=== PATIENT | female | born 1955 | race Caucasian/White ===

== ENCOUNTER 2024-08-11 01:31 | Inpatient (IN) | payer OTHER, SELFPAY ==
[2024-08-10 22:33] VITALS: BP 120/74
--- NOTE | 2024-08-10 22:45 | ED.GENMED ---
History of Present Illness
General
Chief Complaint: Breathing Problem
Time Seen by Provider: 08/10/24 22:39
History of Present Illness
History of Present Illness:
69-year-old female with history of severe Parkinson's presents to the emergency department for evaluation of increased drooling, and lethargy as well as a low-grade fever. Per she has had increasing saliva over the past 2 days and this
morning had a temp of 101 Fahrenheit. She is entirely tube feed dependent but does take occasional sips of water orally, does note that she seems to have some struggling of breathing after drinking. No vomiting or diarrhea
Past History
Past History
ED Past Medical History: Hypothyroidism and Other (Parkinson's)
ED Past Surgical History: Gynecological (Tubal ligation)
Social History
Tobacco: Non-smoker
Alcohol: None
Drug: None
Personal:
Living: with family
Employment: Not employed
Review of Systems
Review of Systems
Allergies reviewed?: Yes
All Other Systems: ROS reviewed and negative except as documented in HPI and ROS
Phy Exam
Physical Exam
Physical Exam:
GEN: Chronically ill-appearing, diffusely contracted
HEENT: Oral mucosa moist, no scleral icterus, oral secretions noted
Cardiac: Regular rate and rhythm, no murmurs
Lung: Tachypneic with poor inspiratory effort, grossly diminished left lung sounds
MSK: No gross deformity or injuries
Skin: Good color, no pallor or jaundice, no rashes
Neuro: Alert, oriented to baseline, extremity contractures/rigidity noted
Psych: Calm, cooperative
Scores
Heart Failure Risk
Heart Failure Risk Score: Not Applicable
Course
Orders/Labs/Results
Orders:
Orders
08/10/24 22:45
Urinalysis Reflex To Culture Urgent
Date Specimen was Collected: 08/11/24
Time Specimen was Collected: 00:43
CR Chest Portable - 1 View Urgent
Comment:
Reason For Exam: hypoxia
Reason Study Needs to be Portable: Other
08/10/24 22:47
COVID-19 Antigen Urgent
Source: Nasal Swab
Complete Blood Count/With Diff Urgent
Comprehensive Metabolic Panel Urgent
Lactic Acid Q4H
Comment: CANCEL 2nd LACTIC ACID IF 1st LACTIC ACID IS LESS THAN 2
Manual Differential Urgent
Procalcitonin Urgent
PCT Algorithmm Indication: Respiratory
Prothrombin Time Urgent
Influenza A+B Rapid Molecular Urgent
MORIAH Source: Nasal Swab
Specimen Description:
08/10/24 23:16
0.9% Sodium Chloride 1000 ml [Nss] 1,000 ml IV BOLUS
08/10/24 23:36
Piperacillin/Tazo 3.375 Gram [Zosyn] 3.375 gram in 50 ml IV NOW
08/11/24 00:23
Straight cath- Treatment ONCE
08/11/24 00:51
0.9% Sodium Chloride 250 ml [Nss] 250 ml IV BOLUS
08/11/24 00:57
Vancomycin 1 Gram/200 ml [Vancocin] 1 gram in 200 ml IV NOW
08/11/24 01:00
Admit/Transfer Patient As Directed
Co-Sign Provider:
Level of Care: Inpatient admission
Assign to:: IMU- Intermediate Care
Physician / Group: hospitalist
Diagnosis: sepsis, respiratory distress
Reason for Hospitalization: sepsis, respiratory distress
Expected length of stay greater than two midnights?: Yes
ELOS- Estimated Length of Stay in days: 2
I certify the patient meets the requirements for IP care: Yes
Flush (0.9% Sodium Chloride) [Flush (Nss)] See Dose Instructions IV PER PROTOCOL
PRN Pain Medication Management As Directed
May give lesser potent ordered pain med per pt: Yes
preference::
Protocol:: Medication orders for pain may be administered in a
manner that supports deferring to patient preference
when the pt is:
- Requesting an ordered lesser potent pain medication.
Least to most potent pain medications are defined
as: acetaminophen < NSAID < tramadol < opioids
(morphine, oxycodone, hydromorphone).
- Requesting a lesser dose of the same medication IF
ORDERED.
- Requesting a less intrusive route of administration
if both routes are prescribed by the provider (PO <
IV).
08/11/24 01:01
Code Status As Directed
Resuscitation Status: Do not resuscitate
Reached after discussion with pt or family/Healthcare POA: Yes
DNR Bracelet Application ONCE
08/11/24 01:[address] [CT Chest Pe Study] Stat
Comment:
Reason For Exam: hypoxia, non-amblatory
08/11/24 02:45
Lactic Acid Q4H
Comment: CANCEL 2nd LACTIC ACID IF 1st LACTIC ACID IS LESS THAN 2
08/11/24 06:00
Levothyroxine [Synthroid] 75 mcg TUBE DAILY @ 0600
08/11/24 08:00
Carbidopa/Levodopa [Sinemet 25-100] 2 tablet TUBE TID
Glycopyrrolate [Robinul] 1 mg PO DAILY
Lansoprazole [Prevacid] 30 mg TUBE DAILY
08/11/24 22:00
Zolpidem Tartrate [Ambien] 10 mg TUBE HS
Abnormal Lab Results
08/10/24 08/11/24
22:47 00:45
RBC 4.04 L 10^6/uL
(4.20-5.40)
MCH 33.2 H pg
(27.0-31.0)
Segmented Neutrophils 29 L %
(42-75)
Band Neutrophils 41 H %
(0-3)
Lymphocytes (Manual) 8 L %
(20-51)
Monocytes (Manual) 18 H %
(2-9)
BUN 30 H mg/dl
(7-17)
Glucose 117 H mg/dl
(70-99)
Lactic Acid 3.2 H mmol/L
(0.7-2.0)
AST 90 H U/L
(14-36)
Alkaline Phosphatase 200 H U/L
(38-126)
Procalcitonin 4.38 H* ng/ml
(0.0-0.25)
Urine Ketones Trace A
(Negative)
08/10/24 22:47
08/10/24 22:47
Vital Signs
Initial and Last Documented VS:
Initial Vital Signs
Pulse Resp BP Pulse Ox
92 28 120/74 90
08/10/24 22:33 08/10/24 22:33 08/10/24 22:33 08/10/24 22:33
Last Documented Vital Signs
Temp Pulse Resp BP Pulse Ox
98.4 F 85 36 115/69 95
08/10/24 22:53 08/11/24 00:20 08/11/24 00:20 08/11/24 00:20 08/11/24 00:20
MDM/Problems Addressed
MDM/Problems Addressed:
69-year-old female presents with hypoxia and fever at home, she required gradual up titration of supplemental oxygen to 7 L of mid flow, exam concerning for lack of breath sounds on the left however x-ray shows no obvious abnormalities, due to
marked bandemia and elevated procalcitonin we will treat this as a presumed bacterial pneumonia, given her functional limitation will treat with IV Zosyn and admit for further management
*Critical Care Note
Total Time (30-74mins, 75-104mins- exclusive of procedures): Not Applicable
ED Attending Note
-
Portions of this chart may have been created with voice recognition software.� Occasional wrong word or��sound alike� substitutions may have occurred due to the inherent limitations of voice recognition software.
Discharge Plan
Departure
Patient Disposition: Admit
Date of Disposition: 08/11/24
Time of Disposition: 00:03
Presentation/result/management discussed w/ accepting MD/DO: Hospitalist
Discharge Problem:
Acute hypoxic respiratory failure, Pneumonia
Interventions
Interventions:
*Risk Screen - Suicide Last Done: 08/10/24 22:33
*General Assessment Last Done: 08/10/24 23:07
*Neglect/Abuse Screening Last Done: 08/10/24 22:33
ED- Fall Risk Assessment Last Done: 08/10/24 23:07
*ED COVID-19 Vaccine History Last Done: 08/10/24 23:07
ED- Cardiac Assessment Last Done: 08/10/24 23:07
ED- Pulmonary Assessment Last Done: 08/10/24 23:07
[2024-08-10 22:51] VITALS: BP 106/52
[2024-08-10 23:00] VITALS: BP 105/52
[2024-08-10 23:02] LABS: Hematocrit 38.9 % (37.0-47.0); Hemoglobin 13.4 g/dL (12.0-16.0); Mean Corp Hgb Conc. 34.4 g/dL (33.0-37.0); Mean Corpuscular Hgb 33.2 pg (27.0-31.0); Mean Corpuscular Volume 96.3 fL (81.0-99.0); Mean Platelet Volume 10.4 fL (7.4-10.4); Platelet Count 165 10^3/uL (130-400); Red Blood Cell Count 4.04 10^6/uL (4.20-5.40); Red Cell Dist. Width 12.5 % (11.5-14.5); White Blood Cell Count 4.9 10^3/uL (4.8-10.8)
[2024-08-10 23:06] VITALS: BP 115/67
[2024-08-10 23:08] LABS: INR 1.11; Lactic Acid 3.2 mmol/L (0.7-2.0); PT 14.2 Sec (11.4-14.6)
[2024-08-10 23:16] LABS: COVID-19 Antigen Negative (Negative)
[2024-08-10 23:20] VITALS: BP 119/67
[2024-08-10 23:22] LABS: ALT (SGPT) 18 U/L (0-35); AST (SGOT) 90 U/L (14-36); Albumin 4.2 g/dl (3.5-5.0); Alkaline Phosphatase 200 U/L (38-126); Blood Urea Nitrogen 30 mg/dl (7-17); Carbon Dioxide 27 mmol/L (22-30); Chloride 99 mmol/L (98-107); Glucose 117 mg/dl (70-99); Potassium 3.8 mmol/L (3.5-5.1); Sodium 139 mmol/L (135-145); Total Bilirubin 0.8 mg/dl (0.2-1.3); Total Protein 6.6 g/dl (6.3-8.2); eGFR > 60.00
[2024-08-10 23:23] LABS: Absolute Neutrophils -Man Diff 3.4 10^3/uL (1.4-6.5); Band Neutrophils 41 % (0-3); Lymphocytes 8 % (20-51); Metamyelocytes 4 % (-); Monocytes 18 % (2-9); Platelets Checked Yes; Segmented Neutrophils 29 % (42-75); Total Cells Counted 100; Toxic Granulation 1+; Vacuolated Segs 1+
[2024-08-10 23:24] LABS: Normal RBC Morphology Yes
[2024-08-10] MEDS: NSS 1000 IV (23:24)
[2024-08-10 23:40] VITALS: BP 121/68
[2024-08-10 23:52] LABS: Procalcitonin 4.38 ng/ml (0.0-0.25)
[2024-08-10] MEDS: ZOSYN 50 IV (23:58)
[2024-08-11] VITALS (54 sets, daily range): BP systolic 102–147; BP diastolic 61–83; BMI 19.5
[2024-08-11] MEDS: FLUSH (NSS) 1 FLUSH IV (00:43)
--- NOTE | 2024-08-11 00:44 | HPS.HSE ---
Family Physician
-
Family Physician: Lalitha Choudhary
Chief Complaint
-
Fever and shortness of breath
History of Present Illness
This is a 69-year-old female with past medical history significant for Parkinson's disease, PEG tube dependent but takes seen hydration orally presenting to the emergency department with fever and congestion at home.
According to spouse who provided history the patient started having symptoms yesterday. He found her to be drooling this morning. She sounded congested in the midsternal region. He also measured a temperature of over 100 �F at home. He reported
that he was able to extract greenish-yellow mucus from the oral cavity. Patient is unable to cough up any secretions. He reports that she does appear to cough with intake of oral hydration. She has no foul-smelling urine. She has no known sick
contacts. She has no abdominal pain. There has been no vomiting.
In the Emergency Department patient was afebrile with a temp of 98.5, blood pressure of 115/69 pulse of 85 but she was in respiratory distress with a respiratory of 36 and oxygen saturation of 85% on room air. She is currently satting at 95% on mid
flow. COVID test and influenza were negative. White count with notable for a WBC of 4.9 with 41% bands. Hemoglobin was 13 and platelet count was normal. Chemistries are within normal limits. Lactic acid was elevated at 3.2. Procalcitonin was
elevated at 4.3. UA is pending.
Medical History
Past Medical History
Past Medical History: Reports Hypothyroidism and Other (Parkinson's)
Past Surgical History: Reports None
Social History
Tobacco: Non-smoker
Alcohol: None
Drug: None
Personal:
Living: With Family
Employment: Disabled
Family History
Family History: Not pertinent
Allergies / Home Medications
Allergies reflects when Allergies were last updated in [facility].
Home Medications with original date entered in [facility]
Allergy/Medication List:
Allergies
Allergy/AdvReac Type Severity Reaction Status Date / Time
codeine Allergy Rash Verified 08/10/24 22:36
Home Medications
levothyroxine 75 mcg tablet 75 mcg feeding tube DAILY Thyroid 12/01/18
zolpidem 10 mg tablet 10 mg feeding tube HS Sleep 12/01/18
lansoprazole 30 mg delayed release,disintegrating tablet 30 mg feeding tube DAILY ##30 12/08/18
carbidopa 25 mg-levodopa 100 mg tablet 2 tab feeding tube TID parkinson 11/01/21
glycopyrrolate 1 mg tablet 1 mg PO DAILY Gastrointestinal issue 11/01/21
acetaminophen 500 mg/15 mL oral liquid 1,000 mg feeding tube HS 12/03/23
Review of Systems
-
History Source: Family
Constitutional: Reports Fever
EENT: Reports No Symptoms
Respiratory: Reports Trouble Breathing
Cardiac: Reports No Symptoms
Abdomen/GI: Reports No Symptoms
: Reports No Symptoms
Musculoskeletal: Reports No Symptoms
Skin: Reports No Symptoms
Neurological: Reports No Symptoms
Endocrine: Reports No Symptoms
Hematologic/Lymphatic: Reports No Symptoms
Psych: Reports No Symptoms
Physical Exam
Vital Signs
Vital Signs
Temp Pulse Resp BP Pulse Ox
98.4 F 85 36 115/69 95
08/10/24 22:53 08/11/24 00:20 08/11/24 00:20 08/11/24 00:20 08/11/24 00:20
Physical Exam
General: Appears Chronically Ill
HEENT: NormoCephalic, Anicteric, Moist mucous membranes and Atraumatic
Respiratory: Accessory Resp Muscle Use and Decreased Breath Sounds
Cardiac: S1/S2, Regular Rhythm and Tachycardia
Breast: Deferred by me
GI: Soft, Non Tender, Non Distended, Normal Bowel Sounds, Peg Tube and Other
Rectal: Deferred by Provider
Genito-urinary: Deferred by me
Musculoskeletal: No Clubbing
Skin: Warm
Neuro: AO x 3
Hematologic/Lymphatic: No Lymphadenopathy
Psych: Apparent Dementia
Laboratory Results
-
08/10/24 22:47
08/10/24 22:47
Laboratory Results
PT 14.2 Sec (11.4-14.6) 08/10/24 22:47
INR 1.11 08/10/24 22:47
Lactic Acid 3.2 mmol/L (0.7-2.0) H 08/10/24 22:47
Total Bilirubin 0.8 mg/dl (0.2-1.3) 08/10/24:47
AST 90 U/L (14-36) H 08/10/24 22:47
ALT 18 U/L (0-35) 08/10/24 22:47
Alkaline Phosphatase 200 U/L (38-126) H 08/10/24 22:47
Data Reviewed
-
Diagnostic Radiology: Image Personally Visualized and interpreted
Medical Tests (Nuc Med, Echo, EKG etc): Image Personally Visualized and interpreted
Lab Data: Labs Reviewed by me
Impression/Plan
-
IMPRESSION:
Six 9-year-old female coming with hypoxia and fever found to have bandemia. X-ray is clear without any focal infiltrates. Concern is for possible early aspiration pneumonia versus pneumonitis. However history and physical exam cannot fully
explain the degree of hypoxia. Other sources of infection cannot be ruled out entirely.
PLAN:
1. Sepsis -patient meets sepsis criteria with fever tachycardia and hypoxia. Source unclear at this time. Procal elevated
- admit to imu
- blood cultures and urine cultures
- u/a is pending
- IV NS, 30ml/kg, trend lactic acid level
- Likely pulmonary, will get CT A/P w/o contrast
- Vancomycin and Zosyn for now
- MRSA swab
2. Hypoxia - Hypoxia with rapid shallow breathing. Clear xray. NO wheezes or crackles. Aspiration, ? mucus plug vs PE
- CT PE study
- midflow oxygen to maintain sat > 93%
- antibiotics as above
- if mucus plug may need mucolytics
- duonebs q 6 hours and prn
- pulm consult.
3. Parkinson
- continue carbidopa levidopa
4. Hypothyroid
- continue levothyroxine
5. PEG Tube - On isource 1.5 fany 250 ml tid. Free water unknown as patient takes oral fluids
- nutrition consult
- iv lr for now
DVT PPX - lovenox
Code Status - DNR
[2024-08-11 00:51] LABS: Urine Albumin Trace (Neg - Trace); Urine Bilirubin Negative (Negative); Urine Character Clear (Clear); Urine Color Yellow; Urine Glucose Negative (Negative); Urine Ketone Trace (Negative); Urine Leukocyte Negative (Negative); Urine Nitrite Negative (Negative); Urine Occult Blood Negative (Negative); Urine Urobilinogen Negative (Neg - 1+)
[2024-08-11] MEDS: VANCOCIN 200 IV (01:25)
[2024-08-11] MEDS: NSS 250 IV (01:26)
--- NOTE | 2024-08-11 03:00 | PTCARENOTE ---
report received. aaox1 pt nonverbal. nsr. vss. pulse ox >93% on 7lmidflow. vanco infusing. labs drawn. mrsa sent. theo @ [facility]. spouse at bedside. call waddell in reach. will monitor.
[2024-08-11 03:37] LABS: Lactic Acid 2.1 mmol/L (0.7-2.0)
[2024-08-11] MEDS: D5LR 1000 IV ×2 (04:17→14:05)
[2024-08-11 04:28] LABS: Hematocrit 35.8 % (37.0-47.0); Hemoglobin 12.5 g/dL (12.0-16.0); Mean Corp Hgb Conc. 34.9 g/dL (33.0-37.0); Mean Corpuscular Hgb 34.6 pg (27.0-31.0); Mean Corpuscular Volume 99.2 fL (81.0-99.0); Mean Platelet Volume 10.6 fL (7.4-10.4); Platelet Count 162 10^3/uL (130-400); Red Blood Cell Count 3.61 10^6/uL (4.20-5.40); Red Cell Dist. Width 12.5 % (11.5-14.5); White Blood Cell Count 5.1 10^3/uL (4.8-10.8)
[2024-08-11 06:03] LABS: Blood Urea Nitrogen 23 mg/dl (7-17); Calcium 8.9 mg/dl (8.4-10.2); Carbon Dioxide 24 mmol/L (22-30); Chloride 105 mmol/L (98-107); Estimated Creatinine Clearance 63 ml/min; Glucose 115 mg/dl (70-99); Sodium 138 mmol/L (135-145); eGFR > 60.00
[2024-08-11] MEDS: ZOSYN 50 IV ×4 (06:06→23:20)
[2024-08-11] MEDS: SYNTHROID 75 MCG TUBE (06:07)
[2024-08-11] MEDS: TYLENOL ORAL SOLUTION 650 MG TUBE (07:07)
[2024-08-11] MEDS: DUONEB 3 ML INH ×5 (07:22→23:27)
[2024-08-11] MEDS: MUCOMYST 10% 2 ML INH ×2 (07:22→20:02)
--- NOTE | 2024-08-11 07:29 | CON.PUL ---
Consultation
Consultation Request
Date/Time Consultation Requested: 08/11/24
Date/Time Consultation Performed: 08/11/24
Performing Provider: Ace
Reason for Consultation: PNA
Medical History
-
History of Present Illness:
Patient is a 69-year-old female with previous history of Parkinson's disease, PEG tube dependent, history of aspiration pneumonia presented to the ER with fever and congestion at home. Per family, the patient was noted to be drooling with
temperature of 100.0 Fahrenheit, greenish-yellow mucus extracted from mouth consistent with coloring of tube feeds. She is unable to cough effectively. He occasionally pushes on her chest to express tube feed content. Last episode of aspiration
pneumonia was in 2020. She was notably in distress on arrival to ER with respiratory rate of 36 and oxygen saturation of 85% on room air. She is placed on supplemental O2, COVID test and influenza were negative. She is admitted to IMU for further
management.
Allergies / Home Medications
Allergies
Allergy/AdvReac Type Severity Reaction Status Date / Time
codeine Allergy Rash Verified 08/10/24 22:36
Home Medications
�Medication �Instructions �Recorded �Confirmed �Last Taken �Type
levothyroxine 75 mcg tablet 75 mcg feeding tube DAILY Thyroid 12/01/18 08/10/24 12/02/23 13:00 History
zolpidem 10 mg tablet 10 mg feeding tube HS Sleep 12/01/18 08/10/24 12/03/23 02:00 History
lansoprazole 30 mg delayed 30 mg feeding tube DAILY ##30 12/08/18 08/10/24 12/02/23 18:00 Rx
release,disintegrating tablet
carbidopa 25 mg-levodopa 100 mg 2 tab feeding tube TID parkinson 11/01/21 08/10/24 12/02/23 23:00 History
tablet
glycopyrrolate 1 mg tablet 1 mg PO DAILY Gastrointestinal 11/01/21 08/10/24 12/02/23 23:00 History
issue
acetaminophen 500 mg/15 mL oral 1,000 mg feeding tube HS 12/03/23 08/10/24 12/02/23 23:00 History
liquid
Review of Systems
Vitals / Labs / Diagnostic Testing
Vital Signs
Temp Pulse Resp BP Pulse Ox
102.3 F H 91 24 135/68 97
08/11/24 07:07 08/11/24 07:27 08/11/24 07:27 08/11/24 05:45 08/11/24 07:27
Lab Data
08/11/24 04:16
08/11/24 05:14
Laboratory Results
08/10/24
22:47
PT 14.2
INR 1.11
Microbiology
08/10/24 22:47 Nasal Swab Influenza Types A & B (ZENAIDA) - Final
Negative for Influenza A & B, NAAT
Negative results must be combined with clinical observations
and patient history.
Nucleic Acid Amplification test (NAAT)performed on the
[employer] NOW platform.
Diagnostic Testing:
Assessment
-
Patient is a 69-year-old female with previous history of Parkinson's disease, PEG tube dependent, history of aspiration pneumonia presented to the ER with fever and congestion at home. Per family, the patient was noted to be drooling with
temperature of 100.0 Fahrenheit, greenish-yellow mucus extracted from mouth consistent with coloring of tube feeds. She is unable to cough effectively. He occasionally pushes on her chest to express tube feed content. Last episode of aspiration
pneumonia was in 2020. She was notably in distress on arrival to ER with respiratory rate of 36 and oxygen saturation of 85% on room air. She is placed on supplemental O2, COVID test and influenza were negative. She is admitted to IMU for further
management.
Acute hypoxic respiratory failure, 85% on room air
Aspiration pneumonia (LLL consolidation)
Mucous plugging on CT imaging
Low-grade fever at home
Bandemia, 41%
Lactic acidosis, 3.2
Conditions present prior to admission
History of aspiration pneumonia, last episode 2020
Severe Parkinson's disease, baseline nonverbal status post PEG
Hypothyroidism
History of urinary retention
GERD
Plan
Hypoxemia noted on arrival, O2 john 85%, now on 7L NC
Not known to be on home O2
Wean as tolerated
Prior history of lung disease is not noted but she has had one episode of aspiration PNA
Suspect patient has aspiration again, given history with TF in mouth
Family states she has issues with tolerating her TFs, follows with GI for this
CXR/CT obtained indicating mucus plugging, intraluminal findings remarked as possible tumor if persistent
I reviewed this with family, they would not want to pursue this even if she did have cancer
A repeat CT chest as OP would be reasonable to obtain to see if this has resolved
No known history of cardiac disease
Prior ECHO results (2013) are reviewed indicating stable function
s/p PEG for chronic dysphagia
TF issue
Consideration for GI eval/dietary if she is unable to tolerate feeds
Severe parkinsonism, nonverbal at baseline
Lack of cognition precludes her from effective airway clearance
Can only give nebs PRN
Family is aware her condition is terminal and she has advanced directives stating no aggressive measures
She is currently DNR
Should her condition deteriorate would need GOC discussions
Discussed extensively with family at bedside
We will follow
Diagnostic Data
Chest X-Ray: 08/10/24 Left lower lobe pneumonia.
CT Scan: CHEST 08/11/24- 1). There is no pulmonary embolism
2). There is abnormal fluid/soft tissue in the left mainstem bronchus associated with left perihilar and left lower lobe pneumonia and less prominent pneumonic infiltrate in the posterior aspect of the left upper lobe and lingula. While this most
likely is secondary to aspiration or mucoid impaction, the possibility that this bronchial obstruction is secondary to tumor is included within the differential diagnosis and bronchoscopy may be useful for further evaluation.
Echo: 09/21/14- Normal left ventricular size and systolic function. Left ventricular ejection fraction is 50-55%. Normal regional wall motion. Mild concentric left ventricular hypertrophy. Normal right ventricular size and function. Mitral valve
opens normally. Trace mitral regurgitation. No mitral stenosis. Aortic valve is grossly normal but poorly visualized.Trace aortic insufficiency. No aortic stenosis.
Tricuspid valve opens normally. No tricuspid regurgitation. Right heart pressures could not be determined. Compared to prior study 11/22/2004 from an outside facility there is no significant change noted.
PFT's:
Reports and relevant images were personally reviewed.
Total time spent on this consultation __75__ includes review of history, physical exam, medications, laboratory data, personal review of imaging, extensive review of outpatient records, discussion with care team and respiratory therapy.
[2024-08-11 07:38] LABS: Lactic Acid 1.4 mmol/L (0.7-2.0)
--- NOTE | 2024-08-11 07:53 | W.PN.HOSP.TC ---
Today's Communication/Plan
-
-Repeat blood culture
-follow up CBC, BMP
Assessment / Plan
Assessment / Plan
Impression: The patient is a 69 year old female with PMH of Parkinson and hypothyroidism who presented to ER ON 08/10 for evaluation of increased drooling, difficulty with breathing, lethargy and fever. Patient has been on PEG tube feeding. Her
reported that she sometimes her was taking sips of water orally. Her also reported he was able to extract greenish-yellow mucus from the oral cavity. The Patient is unable to cough up any secretions. The patient has difficulty
with communication regarding verbalizing.
Assessment/Plan:
# Sepsis/ Acute hypoxic respiratory failure ( left lower lobe aspiration pneumonia)
-Chest CT: left lower lobe pneumonia
-Hx of chronic dysphagia/PEG tube placement and aspiration pneumonia as well
-No leukocytosis although significant bandemia- WBC:5.1
-Procalcitonin elevated: 4.3
-Patient is still tachycardic and febrile
-sputum culture/blood culture ordered on 08/11
-Currently on empiric treatment with vancomycin and Zosyn, will discontinue vancomycin as no clear reason to be MRSA pneumonia
-Patient hypoxic and on 5 to 6 L oxygen through mid flow. Due to aspiration patient at risk of mucous plugging and worsening hypoxia, continue monitoring
-Cant tolerate CPT or will not be able to do IS.
#Parkinson's disease
Chronic dysphagia with PEG tube
-Maintained on home dose of Sinemet 3 times daily
-No signs of agitation. continue monitoring
-Start TF
#Urinary retention
-Bladder scan showing urine of 560 mL in bladder this morning
-Straight cath protocol ordered, may require Harvey catheter if have repeated straight cath
-on glycopyrrolate and likely aggravates urinary retention.
#GERD
-maintain on lansoprazole through tube
# Hypothyroidism
-Continue levothyroxine through tube
#DVT PPX - lovenox
#Code Status - DNR
Anticipated Discharge: 24 - 48 hours
Subjective/Interval History
-
Date of Service: August 11, 2024
The patine was seen in her bed with her nasal o2 cannula in a flexed position. She has rigidity grossly in her muscles. She replied most of the questions like yes or no. She denied having any pain.
Objective Data
-
Labs:
Laboratory Results
08/10/24 08/11/24 08/11/24
22:47 04:16 05:14
WBC 4.9 5.1
Hgb 13.4 12.5
Hct 38.9 35.8 L
Plt Count 165 162
PT 14.2
INR 1.11
Sodium 139 Cancelled 138
Potassium 3.8 Cancelled 4.0
Chloride 99 Cancelled 105
Carbon Dioxide 27 Cancelled 24
BUN 30 H Cancelled 23 H
Creatinine 0.6 Cancelled 0.5 L
Glucose 117 H Cancelled 115 H
Calcium 10.0 Cancelled 8.9
Total Bilirubin 0.8
AST 90 H
ALT 18
Alkaline Phosphatase 200 H
Vital Signs:
Vital Signs
Temp Pulse Resp BP Pulse Ox
102.3 F H 91 24 135/68 97
08/11/24 07:07 08/11/24 07:27 08/11/24 07:27 08/11/24 05:45 08/11/24 07:27
I&O
08/10/24 08/11/24 08/12/24
06:59 06:59 06:59
Intake Total 550 / 550
Balance 550 / 550
Review of Systems
-
EENT: Reports No Symptoms Reported
Respiratory: Reports Other (See HPI )
Cardiac: Reports No Symptoms
Abdomen/GI: Reports No Symptoms
Breast: Reports No Symptoms
Genitourinary: Reports No Symptoms
Musculoskeletal: Reports No Symptoms
Skin: Reports No Symptoms
Neuro: Reports No Symptoms
Physical Exam
-
General: Appears Chronically Ill
HEENT: Normocephalic and Atraumatic
Respiratory: Other (Decreased Breath Sounds bilateral )
Cardiac: Regular Rhythm and S1/S2
GI: Soft, Nontender, Nondistended and Other (PEG tube/No redness or discharge )
Musculoskeletal: No Clubbing and Other (Rigidity grossly )
Skin: Warm
Neuro: Awake and Other (Replied my questions like yes or no)
--- NOTE | 2024-08-11 08:00 | PTCARENOTE ---
Received patient from shift boss. Patient is IMU status. Somnolent, sleeping, non verbal at baseline. She is on 7L midflow nasal cannula, 97%. Diminished throughout. Patient is sinus rhythm on monitor. on heparin for DVT prophylaxis. Patient
is NPO, has peg. Purewick in place for incontinence. Stage 2 reported in handoff, will do full head to toe assessment. Patient is pale generally otherwise. Will continue to turn and reposition q2.
[2024-08-11] MEDS: PREVACID 30 MG TUBE (08:27)
[2024-08-11] MEDS: ROBINUL 1 MG PO (08:27)
[2024-08-11] MEDS: ROBITUSSIN 100 MG PO ×4 (08:27→22:42)
[2024-08-11] MEDS: SINEMET 25-100 2 TABLET TUBE ×3 (08:27→22:48)
[2024-08-11] MEDS: HEPARIN 5000 UNITS SC ×2 (08:28→19:59)
--- NOTE | 2024-08-11 08:46 | PHA.VAN.IN ---
Assessment
- Assessment
Renal Function: Appears similar to baseline
Concomitant Antimicrobials: piperacillin/tazobactam
AUC Dosing Plan
- Dosing Variables
Dosing Weight (kg): 45.5
Dosing CrCl (ml/min): 63
Vd coefficient (L/kg): 0.7
- Empiric Dosing
Initial / Loading Dose: 1000mg - 08/11 01:25 plus additional 500mg x1 today
Maintenance Regimen: Vanc 1000mg Q24H - start at 0600
Estimated AUC (mcg*h/mL): 570
Estimated Peak (mcg*h/mL): 42.2
Estimated Trough (mcg/ml): 11.5
Estimated Half Life (H): 12.2
Patient unlikely to follow population-based PK - will provide larger mg/kg dose given BMI ~20 but Q24H interval due to age, comorbidities and borderline half-life
- Monitoring
No levels ordered at this time: consider levels in next few days
MRSA Screen: Ordered per protocol
Pharmacokinetics Vancomycin I
- -
Patient Age: 69
Patient Sex: Male
Vancomycin Day #: 1
Indication: Pulmonary/Respiratory
Requesting Provider: Dr. Heller
Pertinent Antimicrobial Allergies:
no pertinent antibiotic allergies
Height / Weight:
Height 5 ft
Actual Weight 45.3 kg
IBW in k.5
Pertinent Past Medical History: BMI ~19.5, Parkinson's (PEG)
- Vital Signs / Lab Results
Temp Pulse Resp BP Pulse Ox
101.7 F H 91 24 135/68 97
08/11/24 08:08 08/11/24 07:27 08/11/24 07:27 08/11/24 05:45 08/11/24 07:27
Lab Results - Hematology
08/10/24 08/11/24
22:47 04:16
WBC 4.9 5.1
Band Neutrophils 41 H
Lab Results - Chemistry
08/10/24 08/11/24 08/11/24
22:47 04:16 05:14
BUN 30 H Cancelled 23 H
Creatinine 0.6 Cancelled 0.5 L
Estimated Creat Clear Cancelled 63
Albumin 4.2
08/10/24 08/11/24 08/11/24
22:47 02:49 07:02
Lactic Acid 3.2 H 2.1 H 1.4
Lab Results - Urine
08/11/24
00:45
Urine Nitrite (Reflex) Negative
Leukocyte Esterase Rfl Negative
Microbiology Results
08/11/24 00:45 Legionella Urinary Antigen - Final
Urine Negative for Legionella pneumophila Serogroup 1 antigen.
A negative result does not rule out the possiblity of
Legionella infection due to other serogroups or species of
Legionella. Clinical correlation is recommended.
08/10/24 22:47 Influenza Types A & B (ZENAIDA) - Final
Nasal Swab Negative for Influenza A & B, NAAT
Negative results must be combined with clinical observations
and patient history.
Nucleic Acid Amplification test (NAAT)performed on the
[employer] platform.
--- NOTE | 2024-08-11 10:41 | WOUNDNOTE ---
[facility] RN note: Patient admitted with sepsis
See H&P for complete history.
PMH: Parkinsons, PEG tube
Wound Location and type/assessment: Patient assessed with GOLD Hester and JOLLY Brantley. Patient admitted with stage 2 PI. The surrounding area is boggy, red. Heels intact and blanchable red.
Appetite: Tube feeds held, dietary consulted.
Pressure redistribution devices in place: [employer] Max Air, turning schedule
Plan: Sacral border to sacrum. Will add order for air mattress for possible transfer to [facility]. Patient should remain on air surface. Patient has several comorbidities including poor mobility and sepsis. Wounds may worsen and new wounds may
develop even with optimal care. GOLD Reardon updated on plan. Updated care plan and will follow as needed.
Note to case management of equipment requested for discharge: Patient should have air surface
[2024-08-11] MEDS: VANCOCIN HCL 500 MG 100 IV (11:32)
--- NOTE | 2024-08-11 12:10 | CM ---
CM following re: discharge planning.
Discussed in Rounds, reviewed pt's chart, met with pt. Pt's daughter Esthela SAUCEDA, son Javier and son Meir at bedside.
Pt is a 69 year old female, admitted with primary dx of Sepsis, Acute respiratory failure, requires 7: NC of O2.
Per daughter Esthela, pt lives with (children's stepfather) in a split level house, 5+9 steps to enter. Per family, pt requires total care, uses a wheelchair and provides all necessary care to the pt. per pt's children, their stepfather
is reluctant to accept any services at home and pt's children requested information to apply for Medicaid and community based services. [employer] phone number provided and pt's daughter stated she will apply for community based
services for pt at home even pt's is reluctant to accept it. CM will talk to pt's when he is here.
PCP: Lalitha Choudhary
pharmacy: [facility]
D/C plan: home with VN services, family support and to follow up with [employer] to apply for community based services.
CM will follow with discharge plan updates as hospitalization progresses
--- NOTE | 2024-08-11 13:50 | PTCARENOTE ---
Transferred patient to [facility]. Report given to GOLD Kiser.
--- NOTE | 2024-08-11 14:00 | W.PN.UPDATE ---
Update Note
Progress Note Update
Nonbillable note
1. Acute hypoxic respiratory failure, left lower lobe aspiration pneumonia, sepsis
-Patient have left lower lobe pneumonia on CT chest, images reviewed
-History of chronic dysphagia/PEG tube placement and aspiration pneumonia as well
-No leukocytosis although significant bandemia, procal elevated, patient tachycardic and febrile
-No reported history of MDR organism isolated from respiratory culture, sputum culture/blood culture ordered
-Currently covered with vancomycin and Zosyn, will discontinue vancomycin as no clear reason to be MRSA pneumonia.
-Patient hypoxic and requiring 5 to 6 L oxygen through mid flow. Due to aspiration patient at risk of mucous plugging and worsening hypoxia, continue monitoring
-Cant tolerate CPT or will not be able to do IS.
2. Parkinson's disease
Chronic dysphagia
-Maintained on home dose of Sinemet 3 times daily
-No signs of agitation. continue monitoring
-Start TF
3. Urinary retention
-Bladder scan showing urine of 560 mL in bladder
-Straight cath protocol ordered, may require Harvey catheter if have repeated straight cath
-on glycopyrrolate and likely aggravates urinary retention.
4. GERD
-maintain on lansoprazole through tube
5. Hypothyroidism
-Continue levothyroxine through tube
[2024-08-12] VITALS (25 sets, daily range): BP systolic 101–139; BP diastolic 60–76; PULSE 9–91
[2024-08-12] MEDS: TYLENOL ORAL SOLUTION 650 MG TUBE (01:18)
[2024-08-12] MEDS: D5LR 1000 IV ×2 (02:32→11:17)
[2024-08-12] MEDS: ZOSYN 50 IV ×4 (06:02→23:52)
[2024-08-12 06:41] LABS: Blood Urea Nitrogen 15 mg/dl (7-17); Calcium 8.2 mg/dl (8.4-10.2); Carbon Dioxide 25 mmol/L (22-30); Chloride 105 mmol/L (98-107); Estimated Creatinine Clearance 63 ml/min; Glucose 151 mg/dl (70-99); Hemoglobin 9.6 g/dL (12.0-16.0); Mean Corp Hgb Conc. 34.3 g/dL (33.0-37.0); Mean Corpuscular Volume 96.2 fL (81.0-99.0); Platelet Count 142 10^3/uL (130-400); Potassium 3.5 mmol/L (3.5-5.1); Red Blood Cell Count 2.91 10^6/uL (4.20-5.40); Red Cell Dist. Width 12.5 % (11.5-14.5); Sodium 139 mmol/L (135-145); White Blood Cell Count 6.1 10^3/uL (4.8-10.8); eGFR > 60.00
--- NOTE | 2024-08-12 06:53 | W.PN.HOSP.TC ---
Today's Communication/Plan
-
-Pulmonology cons
-Transfer to IMU
Assessment / Plan
Assessment / Plan
Impression: The patient is a 69 year old female with PMH of Parkinson and hypothyroidism who presented to ER ON 08/10 for evaluation of increased drooling, difficulty with breathing, lethargy and fever. Patient has been on PEG tube feeding. Her
reported that she sometimes her was taking sips of water orally. Her also reported he was able to extract greenish-yellow mucus from the oral cavity. The Patient is unable to cough up any secretions. The patient has difficulty
with communication regarding verbalizing. This morning, the patient became more hypoxic and she had a portable CXR showing: Severe left lower lobe pneumonia, progressed. Pulmonology was consulted. Saturation of the patient started to increase with
mid flow ~12 L supplemental O2. But in the afternoon, RN reported that patient started to be desaturated to low 70s on 15 L through midflow. It was decided to put patient on BiPAP and discussed with pulmonology, (will try for 3 to 4 hours).
Pulmonology did asses the patient due worsening respiratory failure. Patient was planned to transition to high flow oxygen for support if needed.
Assessment/Plan:
# Sepsis/ Acute hypoxic respiratory failure ( left lower lobe aspiration pneumonia)
-Chest CT: left lower lobe pneumonia
-Hx of chronic dysphagia/PEG tube placement and aspiration pneumonia as well
-WBC:6.1
-Procalcitonin: 4.3 on 08/10
-Patient is tachycardic
-sputum culture/blood culture ordered on 08/11 no growth in 24-pending final report
-Currently on empiric treatment with vancomycin and Zosyn, will discontinue vancomycin as no clear reason to be MRSA pneumonia
-Patient hypoxic and on 5 to 6 L oxygen through mid flow. Due to aspiration patient at risk of mucous plugging and worsening hypoxia, continue monitoring
-Cant tolerate CPT or will not be able to do IS
-Today patient started to be unsaturated and her O2 level was found 70 s on 15 L through midflow. CXR this morning showed new aspiration vs mucus plugging - new worsening left sided atelectasis.
-Pulmonology Recommendations:
Not a candidate for noninvasive mechanical ventilation
continue antibiotic therapy
Mucomyst Nebulized twice a day
Mucolytic
Okay to use glycopyrrolate for secretion control.
nebulizers [id number] to aid with secretion clearance
May try nasopharyngeal suctioning as needed.
We'll add percussion therapy, unclear how effective this will be as patient has poor cough effort.
#Parkinson's disease
Chronic dysphagia with PEG tube
-GI saw the patient today: Peg replaced. Need tube be checked prior to use by nursing team. Recommended hold tube feeds and meds via peg til tube check confirmed by GI.
-Maintained on home dose of Sinemet 3 times daily
-Start TF
#Urinary retention
-Straight cath protocol ordered, may require Harvey catheter if have repeated straight cath
-on glycopyrrolate and likely aggravates urinary retention.
#GERD
-maintain on lansoprazole through tube
# Hypothyroidism
-Continue levothyroxine through tube
#DVT PPX - lovenox
#Code Status - DNR
Anticipated Discharge: > 48 hours
Subjective/Interval History
-
Date of Service: August 12, 2024
Patient was found more hypoxic today in the morning. She was some lethargic.
Objective Data
-
Labs:
Laboratory Results
08/12/24
05:30
WBC 6.1
Hgb 9.6 L D
Hct 28.0 L
Plt Count 142
Sodium 139
Potassium 3.5
Chloride 105
Carbon Dioxide 25
BUN 15
Creatinine 0.6
Glucose 151 H
Calcium 8.2 L
Vital Signs:
Vital Signs
Temp Pulse Resp BP Pulse Ox
98.9 F 95 18 101/60 92
08/12/24 03:35 08/12/24 03:35 08/12/24 03:35 08/12/24 03:35 08/12/24 03:35
I&O
08/10/24 08/11/24 08/12/24
06:59 06:59 06:59
Intake Total 550 / 550
Output Total 1450 / 1450
Balance 550 / 550 -1450 / -1450
Review of Systems
-
EENT: Reports No Symptoms Reported
Respiratory: Reports No Symptoms
Cardiac: Reports No Symptoms
Abdomen/GI: Reports Other (PEG tube feeding )
Genitourinary: Reports No Symptoms
Musculoskeletal: Reports Other (See HPI)
Neuro: Reports Other (Parkinson )
Physical Exam
-
General: Respiratory Distress and Appears Chronically Ill
HEENT: Normocephalic and Atraumatic
Respiratory: Chest Tubes (decreased breath sounds on the left side)
Cardiac: Regular Rhythm
GI: Soft, Nontender and Other (PEG tube/No redness or discharge)
Musculoskeletal: Other (Rigidity grossly)
Skin: Warm and Dry
Neuro: Other (Mildly somnolent )
[2024-08-12] MEDS: MUCOMYST 10% 2 ML INH ×2 (07:30→19:56)
[2024-08-12] MEDS: DUONEB 3 ML INH ×4 (07:31→19:56)
[2024-08-12] MEDS: SYNTHROID 75 MCG TUBE (07:32)
--- NOTE | 2024-08-12 08:19 | W.PN.UPDATE ---
Addendum entered and electronically signed by John Cerda MD 08/13/24 08:01:
In response to CDI query
Stage 2 sacrum pressure injury, POA - wound care
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
Addendum entered and electronically signed by John Cerda MD 08/12/24 14:57:
Notified by RN that patient has been desaturating to low 70s on 15 L through mid flow
Urgent chest x-ray done and showing somewhat similar finding for the morning, fortunately no complete whiteout on left lung
Patient mentation limiting use of BiPAP although discussed with pulmonology and will try for 3 to 4 hours
Patient will need to be transition to high flow oxygen for support if needed
Patient spouse at bedside and repeat GOC discussion held.
Spouse understand patient has guarded prognosis with risk of sudden respiratory/cardiac arrest. Spouse is hopeful that patient will bounce back.
Transfer patient to IMU for closer monitoring.
Original Note:
Update Note
Progress Note Update
I saw and evaluated the patient. I reviewed the resident�s note and agree with findings and plan as documented in the resident�s note.
Patinet is more hypoxic in the morning today
no overt vomiting/aspiration episode reported
TF is on hold and Asked RN to check residual
1. Acute hypoxic respiratory failure - worsening
left lower lobe aspiration pneumonia - aspiration
sepsis
-Patient have left lower lobe pneumonia on CT chest, images reviewed
-History of chronic dysphagia/PEG tube placement and aspiration pneumonia as well
-No leukocytosis although significant bandemia, procal elevated, patient tachycardic and febrile
-No reported history of MDR organism isolated from respiratory culture, sputum culture/blood culture ordered
-Currently covered with vancomycin and Zosyn, will discontinue vancomycin as no clear reason to be MRSA pneumonia.
-Cant tolerate CPT or will not be able to do IS.
-Patient more hypoxic in the morning today and repeat aspiration in night. Chest xr showing new aspiration vs mucus plugging - new worsening left sided atelectasis.
-Transfer to IMU
-Hold TF
2. Parkinson's disease
Chronic dysphagia
-Maintained on home dose of Sinemet 3 times daily
-No signs of agitation. continue monitoring
3. Urinary retention
-Bladder scan showing urine of 560 mL in bladder
-Straight cath protocol ordered, may require Harvey catheter if have repeated straight cath
-on glycopyrrolate and likely aggravates urinary retention.
4. GERD
-maintain on lansoprazole through tube
5. Hypothyroidism
-Continue levothyroxine through tube
DNR
Will discuss GOC with family
Pulmo updated.
Total time spent : 53 mins
[2024-08-12] MEDS: ROBINUL PO (10:01)
[2024-08-12] MEDS: ROBITUSSIN PO ×3 (10:02→19:54)
[2024-08-12] MEDS: HEPARIN 5000 UNITS SC ×2 (10:02→20:14)
[2024-08-12] MEDS: SINEMET 25-100 2 TABLET TUBE (10:03)
[2024-08-12] MEDS: PREVACID 30 MG TUBE (10:03)
[2024-08-12] MEDS: ROBITUSSIN 100 MG PO (12:16)
--- NOTE | 2024-08-12 13:18 | W.PN.PUL3 ---
Today's Communication / Plan
-
continues secretion clearance - currently on maximum therapy.
Note candidate for noninvasive mechanical ventilation.
Continue oxygen supplementation
Continue antibiotics
High risk situation as the patient has poor cough effort and has lobar atelectasis of the left lower lobe.
If condition continues to deteriorate with focus on comfort.
Assessment
-
Patient is a 69-year-old female with previous history of Parkinson's disease, PEG tube dependent, history of aspiration pneumonia presented to the ER with fever and congestion at home. Per family, the patient was noted to be drooling with
temperature of 100.0 Fahrenheit, greenish-yellow mucus extracted from mouth consistent with coloring of tube feeds. She is unable to cough effectively. He occasionally pushes on her chest to express tube feed content. Last episode of aspiration
pneumonia was in 2020. She was notably in distress on arrival to ER with respiratory rate of 36 and oxygen saturation of 85% on room air. She is placed on supplemental O2, COVID test and influenza were negative. She is admitted to IMU for further
management.
Acute hypoxic respiratory failure, 85% on room air
Aspiration pneumonia (LLL consolidation)
Mucous plugging on CT imaging/Lobar atelectasis left lower lobe
Low-grade fever at home
Bandemia, 41%
Lactic acidosis, 3.2
Conditions present prior to admission
History of aspiration pneumonia, last episode 2020
Severe Parkinson's disease, baseline nonverbal status post PEG
Hypothyroidism
History of urinary retention
GERD
Plan
Worsening pulmonary condition, increased oxygen requirements
Chest x-ray 08/12/2024: Showed worsening left lower lobe infiltrate with atelectasis. Mediastinal shift.
Unfortunately, patient with poor cough effort, poor respiratory effort.
Not a candidate for noninvasive mechanical ventilation
High Risks situation.
Prior history of lung disease is not noted but she has had one episode of aspiration PNA
Suspect patient has aspiration again, given history with TF in mouth
Family states she has issues with tolerating her TFs, follows with [facility] for this
-
CXR/CT obtained indicating mucus plugging, intraluminal findings remarked as possible tumor if persistent
Worsening chest x-ray 08/12/2024. Left lower lobe atelectasis.
continue antibiotic therapy
Mucomyst Nebulized twice a day
Mucolytic
Okay to use glycopyrrolate for secretion control.
nebulizers [id number] to aid with secretion clearance
May try nasopharyngeal suctioning as needed.
We'll add percussion therapy, unclear how effective this will be as patient has poor cough effort.
s/p PEG for chronic dysphagia
keep nothing by mouth for now
head of the bed elevation.
Severe parkinsonism, nonverbal at baseline
Lack of cognition precludes her from effective airway clearance
Family is aware her condition is terminal and she has advanced directives stating no aggressive measures
She is currently DNR
Should her condition deteriorate would consider comfort measures.
Discussed extensively with family at bedsideby Dr. Quiroga on 08/12/2024.
Poor prognosis
We will follow

Diagnostic Data
Chest X-Ray: 08/10/24 Left lower lobe pneumonia.
CT Scan: CHEST 08/11/24- 1). There is no pulmonary embolism
2). There is abnormal fluid/soft tissue in the left mainstem bronchus associated with left perihilar and left lower lobe pneumonia and less prominent pneumonic infiltrate in the posterior aspect of the left upper lobe and lingula. While this most
likely is secondary to aspiration or mucoid impaction, the possibility that this bronchial obstruction is secondary to tumor is included within the differential diagnosis and bronchoscopy may be useful for further evaluation.
Echo: 09/21/14- Normal left ventricular size and systolic function. Left ventricular ejection fraction is 50-55%. Normal regional wall motion. Mild concentric left ventricular hypertrophy. Normal right ventricular size and function. Mitral valve
opens normally. Trace mitral regurgitation. No mitral stenosis. Aortic valve is grossly normal but poorly visualized.Trace aortic insufficiency. No aortic stenosis.
Tricuspid valve opens normally. No tricuspid regurgitation. Right heart pressures could not be determined. Compared to prior study 11/22/2004 from an outside facility there is no significant change noted.
PFT's:
Reports and relevant images were personally reviewed.
Total time spent on this consultation __51_ includes review of history, physical exam, medications, laboratory data, personal review of imaging, extensive review of outpatient records, discussion with care team and respiratory therapy.
Subjective Data
-
Date of Service:
Date of Service: August 12, 2024
Chief Complaint: Pulmonary Follow Up (hypoxemic respiratory failure)
Subjective:
patient is noncommunicative
Mild respiratory distress at rest
Poor cough effort
Review of Systems
General: Unobtainable - Pat Unresp
Objective Data
Data Reviewed
Vital Signs / I&O / Oxygen:
Vital Signs
Temp Pulse Resp BP Pulse Ox
98.8 F 85 17 116/68 96
08/12/24 11:00 08/12/24 11:00 08/12/24 11:00 08/12/24 11:00 08/12/24 11:00
Intake and Output
08/11/24 08/12/24 08/13/24
06:59 06:59 06:59
Intake Total 550 / 550 1100 / 1100
Output Total 1450 / 1450
Balance 550 / 550 -1450 / -1450 1100 / 1100
SaO2 96
Nasal Cannula flow liters per 8
minute
Physical Exam
General: Respiratory Distress (Mild at rest)
HEENT: Normocephalic
Respiratory: Rhonchi and Other ( decreased breath sounds in the left)
GI: Soft
Neurology: Other ( alert but not following commands. Poor cough effort.)
Labs/Micro/Reports
Lab Data
08/12/24 05:30
08/12/24 05:30
Microbiology
08/11/24 11:19 Blood/Venous Blood Culture - Preliminary
No Growth in 24 hours- Final report to follow
08/11/24 11:19 Blood/Venous Blood Culture - Preliminary
No Growth in 24 hours- Final report to follow
08/11/24 02:49 Nose Nasal Screen MRSA (PCR) - Final
MRSA not detected - performed by PCR methodology.
08/11/24 00:45 Urine Legionella Urinary Antigen - Final
Negative for Legionella pneumophila Serogroup 1 antigen.
A negative result does not rule out the possiblity of
Legionella infection due to other serogroups or species of
Legionella. Clinical correlation is recommended.
08/10/24 22:47 Nasal Swab Influenza Types A & B (ZENAIDA) - Final
Negative for Influenza A & B, NAAT
Negative results must be combined with clinical observations
and patient history.
Nucleic Acid Amplification test (NAAT)performed on the
[employer] platform.
[2024-08-12 13:26] LABS: Glucose - Point of Care 106 mg/dl (70-99)
--- NOTE | 2024-08-12 14:21 | PTCARENOTE ---
Received pt this am at 07:15. Pt gasping/groaning SaO2 86% on 8L midflow. Increased to 12L midflow, paged respiratory, tube feed on hold, Dr Cerda notified @0721. Stat CXR showed aspiration of tube feed. Tube feed kept on hold, breathing tx given,
pt SaO2 recovered to 95% 10L, no further gasping/groaning, all other VSS. IMU tx on hold for now.
--- NOTE | 2024-08-12 14:26 | PN.CDI ---
CDI
- -
CDI:
Physician Documentation Request
Admit Date: 08/11/24 01:31
Dear Doctor Ching,
Please review the following and provide your response in the progress notes.
Clinical Indicators:
08/11/24 10:41 - Wound Note
#Patient admitted with stage 2 PI.
#...Plan: Sacral border to sacrum.
Selected Entries
08/11/24
03:00
Pressure injury stage [Sacrum] Stage 2
Physician documentation of the type and location of wounds is required for compliant documentation. Based on the above clinical findings and your assessment, please provide the following in your progress note:
Yes, Stage 2 sacrum pressure injury, POA
No, Stage 2 sacrum pressure injury
Other(please specify)
1. Location of the ulcer/wound, including laterality.
2. Type (etiology) of ulcer/wound:
- Diabetic ulcer
- Arterial (ischemic) ulcer
- Traumatic wound
- Venous stasis ulcer
- Pressure (decubitus) ulcer
3. If a pressure ulcer, please also include the stage* of the ulcer:
- Stage 1 - Skin intact, non-blanchable redness
- Stage 2 - Partial thickness loss of dermis, includes intact or open blister
- Stage 3 - Full thickness tissue not including bone, tendon or muscle
- Stage 4 - Full thickness tissue loss, including exposed bone, tendon or muscle
- Unstageable - Full thickness loss in which the base of the ulcer is covered by slough (yellow, villatoro, alvarado, green or brown) and/or eschar (villatoro, brown or black) in the wound bed.
Use of terms such as suspected, likely, concern for, or probable (associated with a specific diagnosis that is being evaluated, monitored, or treated as if it exists) are acceptable and can be coded in the inpatient setting, when documented at the
time of discharge.
Thank you,
Denise Frey RN BSN CCDS
CDI Specialist
please contact via tiger text
Please use your independent medical judgment in providing your response.
*Source: National Pressure Ulcer Advisory Panel (NPUAP)
--- NOTE | 2024-08-12 14:27 | PTCARENOTE ---
Was called into room by patients @13:20 d/t concern of increased work of breathing. Pt respirations 45, SaO2 70% on 10L midflow. Increased pt O2 to 15L midflow, SaO2 78% on 15L. Respiratory therapist and Dr Cerda notified @13:24. Bipap
ordered and placed on patient. Sao2 82% on bipap. Repeat stat cxr ordered/taken, results unchanged from prior. Tube feed continues to be on hold. Bladder scanned pt for 458, straight cathed pt for 500. Report given to IMU RN and pt transferred to
[id number] @14:00
--- NOTE | 2024-08-12 14:35 | PN.CDI ---
CDI
- -
CDI:
Physician Documentation Request
Admit Date: 08/11/24 01:31
Dear Doctor Ching,
Please review the following and provide your response in the progress notes.
Clinical Indicators:
History Parkinson's, PEG with tube feedings
08/10, admitted Acute hypoxic respiratory failure, Pneumonia
08/11 Case Management Note
#...Per family, pt requires total care, uses a wheelchair and
#... provides all necessary care to the pt.
Please provide a diagnosis associated with the patient's current functional status:
Functional quadriplegia (complete immobility due to severe physical disability or frailty, non neurologic cause)
Generalized weakness only without complete immobility
Other (please specify)
Use of terms such as suspected, likely, concern for, or probable (associated with a specific diagnosis that is being evaluated, monitored, or treated as if it exists) are acceptable and can be coded in the inpatient setting, when documented at the
time of discharge.
Thank you,
Denise Frey RN BSN CCDS
CDI Specialist
please contact via tiger text
Please use your independent medical judgment in providing your response.
--- NOTE | 2024-08-12 14:38 | CM ---
Transferred to IMU [id number] to higher level of care.
Pt on 8-12 midflow Pox 95%.
Tube feeding on hold.
Family present and aware of transfer.
PLAN CM to continue to assess and assist with dc planning .
--- NOTE | 2024-08-12 15:59 | W.PN.UPDATE ---
Update Note
Progress Note Update
asked to see as peg tube fell out on arrival to IMU. Peg replaced with #20 sinhala tube with 15 ml balloon without difficulty. Tube bumper between 3-4cm. Some resp distress with bipap. Reviewed with nursing will need tube check prior to use.
Hold tube feeds and meds via peg til tube check confirmed. Reviewed with radiology if able do at bedside.
[2024-08-12] MEDS: SINEMET 25-100 TUBE ×2 (16:12→19:55)
--- NOTE | 2024-08-12 16:46 | PTCARENOTE ---
Patient transferred to IMU due to respiratory distress. Arrived with Bipap 12/5, 10 liters, respiratory rate in the 30s. Peg tube out upon arrival, replaced by GI. Patient in bed on left side, aspiration precautions enforced.
[2024-08-12] MEDS: ATIVAN 0.25 MG IV (20:14)
[2024-08-12] MEDS: NSS (PRESERVATIVE FREE) 0.125 ML IV (20:14)
--- NOTE | 2024-08-12 22:00 | PTCARENOTE ---
Pt respiration rate was in the 40-50's. REFERRAL MANAGER notified and a small dose of Ativan IV order. Pt was transport to get her abd cxr without any issues. GI performance solutions specialist was notified. Pt remains on the BIPAP, SaO2 94 %. Lung sounds are coarse, ex wheezing and
labor breathing. Tachypneic. ABG order for AM. Pt is lethargic. Family at bedside. Will continue w/ tx plan.
[2024-08-13] VITALS (17 sets, daily range): BP systolic 116–130; BP diastolic 59–77; PULSE 2–90; BMI 17.9
[2024-08-13] MEDS: ZOSYN 50 IV ×4 (05:06→23:03)
[2024-08-13] MEDS: SYNTHROID TUBE (05:06)
[2024-08-13 05:26] LABS: Hematocrit 29.2 % (37.0-47.0); Hemoglobin 10.1 g/dL (12.0-16.0); Mean Corp Hgb Conc. 34.6 g/dL (33.0-37.0); Mean Corpuscular Hgb 33.9 pg (27.0-31.0); Mean Platelet Volume 10.1 fL (7.4-10.4); Platelet Count 160 10^3/uL (130-400); Red Blood Cell Count 2.98 10^6/uL (4.20-5.40); Red Cell Dist. Width 12.3 % (11.5-14.5); White Blood Cell Count 8.2 10^3/uL (4.8-10.8)
[2024-08-13 05:50] LABS: B.E. 0 mmol/L; HCO3 23.6 mmol/L (21-28); O2 Saturation % 97.6 % (94-98); PCO2 34 mmHg (32-35); PO2 64 mmHg (83-108); pH 7.45 (7.35-7.45)
[2024-08-13 05:52] LABS: O2 Therapy BIPAP
[2024-08-13 05:55] LABS: Blood Urea Nitrogen 18 mg/dl (7-17); Calcium 8.4 mg/dl (8.4-10.2); Carbon Dioxide 22 mmol/L (22-30); Chloride 108 mmol/L (98-107); Estimated Creatinine Clearance 58 ml/min; Glucose 74 mg/dl (70-99); Potassium 3.9 mmol/L (3.5-5.1); Sodium 140 mmol/L (135-145); eGFR > 60.00
--- NOTE | 2024-08-13 07:17 | W.PN.HOSP.TC ---
Today's Communication/Plan
-
-Try to switch from BIPAP to nasal cannula with high flow O2
Assessment / Plan
Assessment / Plan
Impression: The patient is a 69 year old female with PMH of Parkinson and hypothyroidism who presented to ER ON 08/10 for evaluation of increased drooling, difficulty with breathing, lethargy and fever. Patient has been on PEG tube feeding. Her
reported that she sometimes her was taking sips of water orally. Her also reported he was able to extract greenish-yellow mucus from the oral cavity. The Patient is unable to cough up any secretions. The patient has difficulty
with communication regarding verbalizing. This morning, the patient became more hypoxic and she had a portable CXR showing: Severe left lower lobe pneumonia, progressed. Pulmonology was consulted. Saturation of the patient started to increase with
mid flow ~12 L supplemental O2. On 08/12 , RN reported that patient started to be desaturated to low 70s on 15 L through midflow. The patient was transferred to IMU on 08/12. It was decided to put patient on BiPAP and discussed with pulmonology.
Pulmonology did assess the patient due worsening respiratory failure. Patient was planned to transition to high flow oxygen for support if needed on 08/13 morning. The patient started to be desaturated under nasal cannula and her O2 treatment
switched to BIPAP. Pulmonology was notified about it.
Assessment/Plan:
# Sepsis/ Acute hypoxic respiratory failure ( left lower lobe aspiration pneumonia)
-Chest CT: left lower lobe pneumonia
-Hx of chronic dysphagia/PEG tube placement and aspiration pneumonia as well
-WBC:8.2
-Procalcitonin: 4.3 on 08/10
-Patient is tachycardic
-sputum culture/blood culture ordered on 08/11 no growth in 48 hours -pending final report
-Currently on empiric treatment with Zosyn
-Cant tolerate CPT or will not be able to do IS
-due to aspiration- patient at risk of mucous plugging and worsening hypoxia, continue monitoring
-This morning the patient started to be unsaturated after she switched to nasal cannula and she was switched back to BIPAP.
-CXR this morning 08/13 showed: Interval worsening of confluent opacity involving most of the hemidiaphragm with associated left-sided volume loss
-Pulmonology Recommendations: ( was seen this morning and was updated about worsening after switching to nasal cannula)
Continue BiPAP, may take breaks due to risk of gastric extension and aspiration
Continue nebulizer therapy
Secretion clearance
Continue antibiotics
Oxygen supplementation as needed
#Parkinson's disease
Chronic dysphagia with PEG tube:Ornamental Ironworker was consulted
-GI saw the patient on 08/12: Peg replaced. Need tube be checked prior to use by nursing team. Recommended hold tube feeds and meds via peg till tube check confirmed by GI.
-Maintained on home dose of Sinemet 3 times daily
-Hold on TF due possible risk of aspiration: Only her medications can be given through tube
- Started LR 50ml/hour
#Urinary retention
-Straight cath protocol ordered, may require Harvey catheter if have repeated straight cath
-on glycopyrrolate and likely aggravates urinary retention.
#GERD
-maintain on lansoprazole through tube
# Hypothyroidism
-Continue levothyroxine through tube
#DVT PPX - lovenox
#Code Status - DNR
Anticipated Discharge: 24 - 48 hours
Subjective/Interval History
-
Date of Service: August 13, 2024
The patient was seen in her bed in the am today with BIPAP. Her was at her at bedside reporting she did not open her eyes since yesterday night. Because her recent Chest Xray showed some improvement and her O2 levels started to be over 92
since last night, it was decided to switch the patient nasal cannula with hifg flow O2 rate. The patient started to be desaturated after switching her nasal cannula and then it was decided to switch back on BIPAP again.
Objective Data
-
Labs:
Laboratory Results
08/13/24 08/13/24
05:11 05:43
WBC 8.2
Hgb 10.1 L
Hct 29.2 L
Plt Count 160
HCO3 23.6
Sodium 140
Potassium 3.9
Chloride 108 H
Carbon Dioxide 22
BUN 18 H
Creatinine 0.5 L
Glucose 74
Calcium 8.4
Vital Signs:
Vital Signs
Temp Pulse Resp BP Pulse Ox
97.7 F 80 30 130/71 96
08/13/24 02:31 08/13/24 06:06 08/13/24 06:06 08/13/24 06:06 08/13/24 06:06
I&O
08/12/24 08/13/24 08/14/24
06:59 06:59 06:59
Intake Total 1200 / 1200
Output Total 1450 / 1450 500 / 500
Balance -1450 / -1450 700 / 700
Review of Systems
-
History Source: Family
EENT: Reports No Symptoms Reported
Respiratory: Reports Other (See HPI )
Cardiac: Reports No Symptoms
Abdomen/GI: Reports Other (See HPI )
Genitourinary: Reports Other (See HPI )
Musculoskeletal: Reports Other (See HPI )
Skin: Reports Other (See HPI )
Neuro: Reports Other (See HPI )
Physical Exam
-
General: Respiratory Distress and Appears Chronically Ill
HEENT: Normocephalic and Atraumatic
Respiratory: Other (Decreased breath sounds on the left lung lobe )
Cardiac: Regular Rhythm
GI: Other (PEG tube )
Genito-urinary: Other (Urinary retention )
Musculoskeletal: Other (Generalized rigidity due parkinson )
Neuro: Other (Not oriented, somnolent, Generalized rigidity due Parkinson )
[2024-08-13] MEDS: DUONEB 3 ML INH ×4 (07:46→19:22)
[2024-08-13] MEDS: MUCOMYST 10% 2 ML INH ×2 (07:46→19:22)
--- NOTE | 2024-08-13 07:57 | W.PN.UPDATE ---
Update Note
Progress Note Update
tube check performed and tube is in place and okay for use.
[2024-08-13] MEDS: HEPARIN 5000 UNITS SC ×2 (08:32→20:13)
[2024-08-13] MEDS: SINEMET 25-100 2 TABLET TUBE ×3 (08:33→21:14)
[2024-08-13] MEDS: ROBITUSSIN 100 MG PO ×3 (08:33→21:13)
[2024-08-13] MEDS: ROBINUL 1 MG PO (08:34)
[2024-08-13] MEDS: PREVACID 30 MG TUBE (08:34)
--- NOTE | 2024-08-13 08:50 | W.PN.UPDATE ---
Update Note
Progress Note Update
I saw and evaluated the patient. I reviewed the resident�s note and agree with findings and plan as documented in the resident�s note.
Patient remains on BiPAP at this point
Afebrile in night
No new lab abnormalities
1. Acute hypoxic respiratory failure - worsening
left lower lobe aspiration pneumonia - aspiration
sepsis
Suspected mucus plugging on left lung
-Patient have left lower lobe pneumonia on CT chest, images reviewed
-History of chronic dysphagia/PEG tube placement and aspiration pneumonia as well
-No leukocytosis although significant bandemia, procal elevated, patient tachycardic and febrile
-No reported history of MDR organism isolated from respiratory culture, sputum culture/blood culture ordered
-Currently covered with vancomycin and Zosyn, will discontinue vancomycin as no clear reason to be MRSA pneumonia.
-CXR on 08/12 showing new rapidly worsening left lung atelectasis and likely mucus plugging.
-Patient was on BiPAP in night -> morning ABG showing Pco2 24 po2 64 ph 7.45
-Repeat CXR to be done today
-Could transition off bipap to midflow or high flow as appropriate
2. Parkinson's disease
Chronic dysphagia
-Maintained on home dose of Sinemet 3 times daily
-No signs of agitation. continue monitoring
3. Urinary retention
-Straight cath protocol ordered, may require Hermosillo catheter if have repeated straight cath
-on glycopyrrolate and likely aggravates urinary retention.
-Required straight cath x3 with draining 1, 0.5 and 0.4 L fluid
-Will need hermosillo catheter if have repeat high amount retention
4. PEG tube displacement
-PEG tube came out during moving the patient to IMU
-Replaced by GI SPORTS MEDICINE MASSEUR and help appreciated, tube check confirmed the position in the stomach, tube is OK to use
5. GERD
-maintain on lansoprazole through tube
6. Hypothyroidism
-Continue levothyroxine through tube
DNR
Total time spent : 52 mins
--- NOTE | 2024-08-13 10:14 | W.PN.PUL3 ---
Today's Communication / Plan
-
Continue BiPAP, may take breaks due to risk of gastric extension and aspiration
Continue nebulizer therapy
Secretion clearance
Continue antibiotics
Oxygen supplementation as needed
Poor prognosis
Assessment
-
Patient is a 69-year-old female with previous history of Parkinson's disease, PEG tube dependent, history of aspiration pneumonia presented to the ER with fever and congestion at home. Per family, the patient was noted to be drooling with
temperature of 100.0 Fahrenheit, greenish-yellow mucus extracted from mouth consistent with coloring of tube feeds. She is unable to cough effectively. He occasionally pushes on her chest to express tube feed content. Last episode of aspiration
pneumonia was in 2020. She was notably in distress on arrival to ER with respiratory rate of 36 and oxygen saturation of 85% on room air. She is placed on supplemental O2, COVID test and influenza were negative. She is admitted to IMU for further
management.
Acute hypoxic respiratory failure, 85% on room air
Aspiration pneumonia (LLL consolidation)
Mucous plugging on CT imaging/Lobar atelectasis left lower lobe
Low-grade fever at home
Bandemia, 41%
Lactic acidosis, 3.2
Conditions present prior to admission
History of aspiration pneumonia, last episode 2020
Severe Parkinson's disease, baseline nonverbal status post PEG
Hypothyroidism
History of urinary retention
GERD
Plan
Worsening pulmonary condition, increased oxygen requirements.
Transferred to IMU 08/12/2024.
Chest x-ray 08/12/2024: Showed worsening left lower lobe infiltrate with atelectasis. Mediastinal shift.
Unfortunately, patient with poor cough effort, poor respiratory effort.
Started on BiPAP for increased work of breathing hypoxemia, high risk intubation, high risk for gastric content aspiration. Discussed with and he is okay with the patient is comfortable.
High Risks situation.
DNR status noted.
Prior history of lung disease is not noted but she has had one episode of aspiration PNA
Suspect patient has aspiration again, given history with TF in mouth
Family states she has issues with tolerating her TFs, follows with [facility] for this
-
CXR/CT obtained indicating mucus plugging, intraluminal findings remarked as possible tumor if persistent
Worsening chest x-ray 08/12/2024. Left lower lobe atelectasis.
No leukocytosis/fever curve improving.
continue antibiotic therapy
Mucomyst Nebulized twice a day
Mucolytic
Okay to use glycopyrrolate for secretion control.
nebulizers [id number] to aid with secretion clearance
May try nasopharyngeal suctioning as needed.
percussion therapy as able, unclear how effective this will be as patient has poor cough effort.
Discussed with respiratory therapist, will transition to sports bed.
Should take breaks from BiPAP due to risk of gastric distention and aspiration
s/p PEG for chronic dysphagia
keep nothing by mouth for now
head of the bed elevation.
Severe parkinsonism, nonverbal at baseline-noncommunicative.
Lack of cognition precludes her from effective airway clearance
Family is aware her condition is terminal and she has advanced directives stating no aggressive measures
She is currently DNR
Should her condition deteriorate would consider comfort measures.
Discussed extensively with family at bedsideby Dr. Quiroga on 08/12/2024 and 08/13/2024. Discussed with him critical situation, high risk situation. High risk use of noninvasive mechanical ventilation.
Poor prognosis
We will follow

Diagnostic Data
Chest X-Ray: 08/10/24 Left lower lobe pneumonia.
CT Scan: CHEST 08/11/24- 1). There is no pulmonary embolism
2). There is abnormal fluid/soft tissue in the left mainstem bronchus associated with left perihilar and left lower lobe pneumonia and less prominent pneumonic infiltrate in the posterior aspect of the left upper lobe and lingula. While this most
likely is secondary to aspiration or mucoid impaction, the possibility that this bronchial obstruction is secondary to tumor is included within the differential diagnosis and bronchoscopy may be useful for further evaluation.
Echo: 09/21/14- Normal left ventricular size and systolic function. Left ventricular ejection fraction is 50-55%. Normal regional wall motion. Mild concentric left ventricular hypertrophy. Normal right ventricular size and function. Mitral valve
opens normally. Trace mitral regurgitation. No mitral stenosis. Aortic valve is grossly normal but poorly visualized.Trace aortic insufficiency. No aortic stenosis.
Tricuspid valve opens normally. No tricuspid regurgitation. Right heart pressures could not be determined. Compared to prior study 11/22/2004 from an outside facility there is no significant change noted.
PFT's:
Reports and relevant images were personally reviewed.
Total time spent on this consultation __52_ includes review of history, physical exam, medications, laboratory data, personal review of imaging, extensive review of outpatient records, discussion with care team and respiratory therapy.
Subjective Data
-
Date of Service:
Date of Service: August 13, 2024
Chief Complaint: Pulmonary Follow Up (hypoxemic respiratory failure)
Subjective:
Patient is noncommunicative-baseline
Currently on BiPAP
Poor cough effort.
Review of Systems
General: Other ( Unable to obtain-noncommunicative)
Objective Data
Data Reviewed
Vital Signs / I&O / Oxygen:
Vital Signs
Temp Pulse Resp BP Pulse Ox
98.3 F 83 30 129/70 94
08/13/24 07:00 08/13/24 08:00 08/13/24 08:00 08/13/24 08:00 08/13/24 08:00
Intake and Output
08/12/24 08/13/24 08/14/24
06:59 06:59 06:59
Intake Total 1200 / 1200
Output Total 1450 / 1450 500 / 500
Balance -1450 / -1450 700 / 700
SaO2 94
Nasal Cannula flow liters per 10
minute
Physical Exam
General: Respiratory Distress (Mild at rest)
HEENT: Normocephalic
Cardiovascular: S1-S2
Respiratory: Rhonchi and Other ( decreased breath sounds in the left)
GI: Soft
Neurology: Other ( Noncommunicative. Poor cough effort.)
Skin: Cyanosis (nn)
Labs/Micro/Reports
Lab Data
08/13/24 05:11
08/13/24 05:11
Laboratory Results
08/13/24
05:43
pH 7.45
pCO2 34
pO2 64 L
HCO3 23.6
O2 Delivery Level Bipap
Microbiology
08/11/24 11:19 Blood/Venous Blood Culture - Preliminary
No Growth in 24 hours- Final report to follow
08/11/24 11:19 Blood/Venous Blood Culture - Preliminary
No Growth in 24 hours- Final report to follow
08/11/24 02:49 Nose Nasal Screen MRSA (PCR) - Final
MRSA not detected - performed by PCR methodology.
08/11/24 00:45 Urine Legionella Urinary Antigen - Final
Negative for Legionella pneumophila Serogroup 1 antigen.
A negative result does not rule out the possiblity of
Legionella infection due to other serogroups or species of
Legionella. Clinical correlation is recommended.
08/10/24 22:47 Nasal Swab Influenza Types A & B (ZENAIDA) - Final
Negative for Influenza A & B, NAAT
Negative results must be combined with clinical observations
and patient history.
Nucleic Acid Amplification test (NAAT)performed on the
[employer] platform.
--- NOTE | 2024-08-13 11:20 | PTCARENOTE ---
Pt was rec'd from previous RN at 07:15, somnolent, arousable only to painful stim. Continues on bipap 12/5 with 10L. Per GI note, ok to use new peg for meds and tube feeds. Jevity 1.5 resumed at 10:30 am at initial rate of 10ml/hr. Repeat CXR done
at bedside. Plan discussed with at bedside and care team. Lungs extremely dim on left side. VSS at this time. Continuing to monitor.
--- NOTE | 2024-08-13 12:29 | PTCARENOTE ---
Pt with marked dyspnea and tachypnea in the 40s, sat dipping to 70s. Care team at bedside, resident and RT in room, placed back on biapap, tube feeds turned off, deep suctioned for scant return. Orders for hermosillo rec'd at this time due to previously
noted urinary retention, will place when pt has settled and returned to stable status. Family members at bedside.
--- NOTE | 2024-08-13 13:55 | PTCARENOTE ---
Pt placed on sport bed earlier this am per RT recs. Per orders, 14 fr. Harvey catheter placed at this time for immediate return of 500 ml arlene urine. Pt tolerated well. Percussion and vibration therapy initiated, will continue Q4 hours.
--- NOTE | 2024-08-13 13:56 | PTCARENOTE ---
PIV removed, dc paperwork reviewed, pt awaiting cousin to come pick him up for discharge. No further needs.
[2024-08-13] MEDS: ROBITUSSIN PO (14:01)
--- NOTE | 2024-08-13 14:49 | PTCARENOTE ---
Plan discussed with attending, Dr. Cerda. Will leave tube feeds on hold today and reassess respiratory status tomorrow.
[2024-08-13] MEDS: LR 1000 IV (16:17)
--- NOTE | 2024-08-13 16:58 | CM ---
Patient with Hx Parkinsons Dz with chronic dysphagia/PEG with sepsis, PNA, urinary retention. O2 10L. BiPAP. PEG dislodged on transfer to IMU and replaced - Tube feeding on hold. Per nurse assessment; arousable only to painful stim.
CM continuing to follow for d/c needs.
Plan TBD.
--- NOTE | 2024-08-13 18:24 | PTCARENOTE ---
Percussion and vibration performed at 18:00 again, family remains at bedside. Resident Dr. Flower returned to discuss plan with at bedside as he had earlier indicated some confusion during conversation with RN regarding plan of care /oxygen
requirements, etc. Daughters verbalized awareness of patient's poor prognosis and are in agreement with current plan of care. Emotional support to family ongoing.
[2024-08-14] VITALS (16 sets, daily range): BP systolic 120–138; BP diastolic 65–79; PULSE 2–90; BMI 17.9
[2024-08-14 05:26] LABS: Hematocrit 29.1 % (37.0-47.0); Hemoglobin 10.1 g/dL (12.0-16.0); Mean Corp Hgb Conc. 34.7 g/dL (33.0-37.0); Mean Corpuscular Hgb 33.1 pg (27.0-31.0); Mean Corpuscular Volume 95.4 fL (81.0-99.0); Platelet Count 180 10^3/uL (130-400); Red Blood Cell Count 3.05 10^6/uL (4.20-5.40); Red Cell Dist. Width 12.2 % (11.5-14.5); White Blood Cell Count 6.6 10^3/uL (4.8-10.8)
[2024-08-14] MEDS: SYNTHROID 75 MCG TUBE (05:33)
[2024-08-14] MEDS: ZOSYN 50 IV ×4 (05:33→23:13)
[2024-08-14 05:50] LABS: Blood Urea Nitrogen 20 mg/dl (7-17); Calcium 8.5 mg/dl (8.4-10.2); Carbon Dioxide 18 mmol/L (22-30); Chloride 108 mmol/L (98-107); Estimated Creatinine Clearance 58 ml/min; Glucose 57 mg/dl (70-99); Potassium 3.9 mmol/L (3.5-5.1); Sodium 140 mmol/L (135-145); eGFR > 60.00
[2024-08-14 06:11] LABS: Glucose - Point of Care 61 mg/dl (70-99)
--- NOTE | 2024-08-14 06:15 | W.PN.UPDATE ---
Update Note
Progress Note Update
This am blood glucose 57 previously 74, tube feeding currently on hold.
Will add accu check q 6 to monitor bs, dextrose syringe PRN ad needed.
Will change IVF to d5/NSS at rate 50cc/hr while tube feeding on hold.
[2024-08-14] MEDS: DEXTROSE 50% SYRINGE 12.5 GRAMS IV (06:19)
[2024-08-14] MEDS: D5/0.9% SODIUM CHLORIDE 1000 IV (06:33)
[2024-08-14 06:44] LABS: Glucose - Point of Care 148 mg/dl (70-99)
--- NOTE | 2024-08-14 07:00 | W.PN.HOSP.TC ---
Addendum entered and electronically signed by John Cerda MD 08/14/24 14:14:
I saw and evaluated the patient. I reviewed the resident�s note and agree with findings and plan as documented in the resident�s note.
Acute hypoxic respiratory failure
Aspiration pneumonia
Left lung collapse
-Repeat chest x-ray showing minimal improvement in left upper lobe although on compression with images from yesterday no significant change
-Patient remains on BiPAP and has been remained difficult to wean off to high flow, spouse wanted to attempt to wean off BiPAP again, will do a short trial
-Patient remains on IV Zosyn continue
-Patient was started on slow tube feed at rate of 10 mL/h although could not tolerate and likely had a repeat aspiration event. Maintain on IV fluid until pulmonary status improves
Hypoglycemia
-Patient tube feed needed to be held due to potential aspiration risk, protein calorie malnutrition have poor energy reserves
-Patient NS changed to D5 NS, continue Accu-Chek every 6h
Metabolic acidosis
-Reason unclear, continue monitoring
Overall prognosis remains poor and patient appropriate for hospice care although patient spouse hopeful that patient condition will recover.
Currently patient in stable state on BiPAP and continuing current care plan. If any rapid decline of respiratory function or distress, patient will require to be transition to comfort care
Discussed with commercial art instructor as well, in agreement with the plan
Total time spent : 52 mins
Original Note:
Today's Communication/Plan
-
-Patient is on BIPAP and is willing to switch to nasal cannula
-[facility] discussions are going on per team
Assessment / Plan
Assessment / Plan
Impression: The patient is a 69 year old female with PMH of Parkinson and hypothyroidism who presented to ER ON 08/10 for evaluation of increased drooling, difficulty with breathing, lethargy and fever. Patient has been on PEG tube feeding. Her
reported that she sometimes her was taking sips of water orally. Her also reported he was able to extract greenish-yellow mucus from the oral cavity. The Patient is unable to cough up any secretions. The patient has difficulty
with communication regarding verbalizing. This morning, the patient became more hypoxic and she had a portable CXR showing: Severe left lower lobe pneumonia, progressed. Pulmonology was consulted on 08/12. Saturation of the patient started to
increase with mid flow ~12 L supplemental O2. On 08/12 , RN reported that patient started to be desaturated to low 70s on 15 L through midflow. The patient was transferred to IMU on 08/12. It was decided to put patient on BiPAP and discussed with
pulmonology. Pulmonology did assess the patient due worsening respiratory failure. Patient was planned to transition to high flow oxygen for support if needed on 08/13 morning. The patient started to be desaturated under nasal cannula and her O2
treatment switched to BIPAP back again. Pulmonology was notified about it same day. Today, the patient was seen with under BIPAP maintaining O2 saturation >95 since last night.
Assessment/Plan:
# Sepsis/ Acute hypoxic respiratory failure ( left lower lobe aspiration pneumonia)
-Chest CT: left lower lobe pneumonia
-Hx of chronic dysphagia/PEG tube placement and aspiration pneumonia as well
-WBC:8.2 (No leukocytosis, no fever
-Procalcitonin: 4.3 on 08/10
-Patient is tachycardic
-blood culture: negative
-Legionella urinary antigen: Negative
-Cant tolerate CPT or will not be able to do IS
-due to aspiration- patient at risk of mucous plugging and worsening hypoxia, continue monitoring
-CXR this morning 08/14 showed: Interval worsening of confluent opacity involving most of the hemidiaphragm with associated left-sided volume loss
-Pulmonology Recommendations:
Continue antibiotic therapy
Mucomyst Nebulized twice a day, mucolytic
Okay to use glycopyrrolate for secretion control
May try nasopharyngeal suctioning as needed.
Oxygen supplementation as needed
Should take breaks from BiPAP due to risk of gastric distention and aspiration
#Chronic dysphagia
-GI saw the patient on 08/12: Peg replaced
-On PEG tube:Catalog Specialist was consulted ob 08/13, Currently TF is on hold
-Hold on TF due possible risk of aspiration: Only her medications can be given through tube
-keep nothing by mouth for now
-head of the bed elevation
#Hypoglycemia
-This am blood glucose 57 previously 74
- accu check q 6 to monitor bs
- Dextrose syringe PRN a
-Continue d5/NSS at rate 50cc/hr while tube feeding on hold.
#Parkinson's disease
-Continue Sinemet
-Severe parkinsonism, nonverbal at baseline-noncommunicative.
#Urinary retention
- Harvey catheter was ordered on 08/13
-on glycopyrrolate and likely aggravates urinary retention.
#GERD
-maintain on lansoprazole through tube
# Hypothyroidism
-Continue levothyroxine through tube
#DVT PPX - lovenox
#Code Status - DNR
Anticipated Discharge: 24 - 48 hours
Subjective/Interval History
-
Date of Service: August 14, 2024
The patient was seen in her bed in a flexed position under BIPAP. She did not open her eyes to verbal stimuli.
Objective Data
-
Labs:
Laboratory Results
08/14/24
05:08
WBC 6.6
Hgb 10.1 L
Hct 29.1 L
Plt Count 180
Sodium 140
Potassium 3.9
Chloride 108 H
Carbon Dioxide 18 L
BUN 20 H
Creatinine 0.6
Glucose 57 L
Calcium 8.5
Vital Signs:
Vital Signs
Temp Pulse Resp BP Pulse Ox
98.7 F 79 28 138/79 96
08/14/24 02:48 08/14/24 06:00 08/14/24 06:00 08/14/24 06:00 08/14/24 06:00
I&O
08/13/24 08/14/24 08/15/24
06:59 06:59 06:59
Intake Total 1200 / 1200 1070 / 1070
Output Total 500 / 500 900 / 900
Balance 700 / 700 170 / 170
Review of Systems
-
Unable to obtain full review of systems at this time due to: Patient Non-verbal
EENT: Reports No Symptoms Reported
Respiratory: Reports Other (See HPI )
Cardiac: Reports No Symptoms
Abdomen/GI: Reports No Symptoms and Other (PRG tube feeding )
Genitourinary: Reports Other (See HPI )
Musculoskeletal: Reports Other (See HPI )
Neuro: Reports Other (See HPI )
Physical Exam
-
General: Respiratory Distress and Appears in Distress
HEENT: Normocephalic and Atraumatic
Respiratory: Rhonchi and Other (decreased breath sounds in the left)
Cardiac: Regular Rhythm, S1/S2 and Tachycardic
GI: Soft, Nondistended and Peg Tube
Genito-urinary: Harvey
Musculoskeletal: Other (Rigidity)
Skin: Warm and Dry
Neuro: Other (Noncommunicative, Rigidity, Parkinson )
[2024-08-14] MEDS: DUONEB 3 ML INH ×4 (07:19→20:07)
[2024-08-14] MEDS: MUCOMYST 10% 2 ML INH ×2 (07:20→20:07)
[2024-08-14] MEDS: HEPARIN 5000 UNITS SC ×2 (08:27→21:13)
[2024-08-14] MEDS: SINEMET 25-100 2 TABLET TUBE ×3 (08:27→21:13)
[2024-08-14] MEDS: ROBINUL 1 MG PO (08:27)
[2024-08-14] MEDS: ROBITUSSIN 100 MG PO ×4 (08:27→21:13)
[2024-08-14] MEDS: PREVACID 30 MG TUBE (08:27)
--- NOTE | 2024-08-14 10:06 | W.PN.PUL3 ---
Today's Communication / Plan
-
Remains on BIPAP, wants to try off again today
Repeat CXR looks about the same, LLL consolidation
She has no means for airway clearance, not safe yet to resume TFs
She is DNR, but seems unrealistic about prognosis
Ongoing GOC discussions per team
Assessment
-
Patient is a 69-year-old female with previous history of Parkinson's disease, PEG tube dependent, history of aspiration pneumonia presented to the ER with fever and congestion at home. Per family, the patient was noted to be drooling with
temperature of 100.0 Fahrenheit, greenish-yellow mucus extracted from mouth consistent with coloring of tube feeds. She is unable to cough effectively. He occasionally pushes on her chest to express tube feed content. Last episode of aspiration
pneumonia was in 2020. She was notably in distress on arrival to ER with respiratory rate of 36 and oxygen saturation of 85% on room air. She is placed on supplemental O2, COVID test and influenza were negative. She is admitted to IMU for further
management.
Acute hypoxic respiratory failure, 85% on room air
Aspiration pneumonia (LLL consolidation)
Mucous plugging on CT imaging/Lobar atelectasis left lower lobe
Low-grade fever at home
Bandemia, 41%
Lactic acidosis, 3.2
Conditions present prior to admission
History of aspiration pneumonia, last episode 2020
Severe Parkinson's disease, baseline nonverbal status post PEG
Hypothyroidism
History of urinary retention
GERD
Plan
Worsening pulmonary condition, increased oxygen requirements.
Transferred to IMU 08/12/2024.
Chest x-ray 08/12/2024: Showed worsening left lower lobe infiltrate with atelectasis. Mediastinal shift.
Unfortunately, patient with poor cough effort, poor respiratory effort.
Started on BiPAP for increased work of breathing hypoxemia, high risk intubation, high risk for gastric content aspiration. Discussed with and he is okay with the patient is comfortable.
High Risks situation.
DNR status noted.
Prior history of lung disease is not noted but she has had one episode of aspiration PNA
Suspect patient has aspiration again, given history with TF in mouth
Family states she has issues with tolerating her TFs, follows with GI for this
CXR/CT obtained indicating mucus plugging, intraluminal findings remarked as possible tumor if persistent
Worsening chest x-ray 08/12/2024. Left lower lobe atelectasis.
Repeat CXR this AM about the same
No leukocytosis/fever curve improving, continue antibiotic therapy
Mucomyst Nebulized twice a day, mucolytic
Okay to use glycopyrrolate for secretion control.
Nebulizers [id number] to aid with secretion clearance
May try nasopharyngeal suctioning as needed.
Percussion therapy as able, unclear how effective this will be as patient has poor cough effort.
Discussed with respiratory therapist, will transition to sports bed.
Should take breaks from BiPAP due to risk of gastric distention and aspiration
s/p PEG for chronic dysphagia
keep nothing by mouth for now
head of the bed elevation.
Severe parkinsonism, nonverbal at baseline-noncommunicative.
Lack of cognition precludes her from effective airway clearance
Family is aware her condition is terminal and she has advanced directives stating no aggressive measures
She is currently DNR
Should her condition deteriorate would consider comfort measures.
Discussed extensively with family at bedside by Dr. Quiroga on 08/12/2024 and 08/13/2024. Discussed with him critical situation, high risk situation.
High risk use of noninvasive mechanical ventilation. Poor prognosis
is unrealistic, but daughter is the POA

Diagnostic Data
Chest X-Ray: 08/10/24 Left lower lobe pneumonia.
CT Scan: CHEST 08/11/24- 1). There is no pulmonary embolism
2). There is abnormal fluid/soft tissue in the left mainstem bronchus associated with left perihilar and left lower lobe pneumonia and less prominent pneumonic infiltrate in the posterior aspect of the left upper lobe and lingula. While this most
likely is secondary to aspiration or mucoid impaction, the possibility that this bronchial obstruction is secondary to tumor is included within the differential diagnosis and bronchoscopy may be useful for further evaluation.
Echo: 09/21/14- Normal left ventricular size and systolic function. Left ventricular ejection fraction is 50-55%. Normal regional wall motion. Mild concentric left ventricular hypertrophy. Normal right ventricular size and function. Mitral valve
opens normally. Trace mitral regurgitation. No mitral stenosis. Aortic valve is grossly normal but poorly visualized.Trace aortic insufficiency. No aortic stenosis.
Tricuspid valve opens normally. No tricuspid regurgitation. Right heart pressures could not be determined. Compared to prior study 11/22/2004 from an outside facility there is no significant change noted.
PFT's:
Reports and relevant images were personally reviewed.
Total time spent on this encounter __52_ includes review of history, physical exam, medications, laboratory data, personal review of imaging, extensive review of outpatient records, discussion with care team and respiratory therapy.
Subjective Data
-
Date of Service:
Date of Service: August 14, 2024
Chief Complaint: Pulmonary Follow Up (hypoxemic respiratory failure)
Subjective:
Remains on BIPAP
Baseline unresponsive
at bedside
Objective Data
Data Reviewed
Vital Signs / I&O / Oxygen:
Vital Signs
Temp Pulse Resp BP Pulse Ox
98.5 F 75 26 125/74 99
08/14/24 07:00 08/14/24 08:00 08/14/24 08:00 08/14/24 08:00 08/14/24 08:00
Intake and Output
08/13/24 08/14/2424
06:59 06:59 06:59
Intake Total 1200 / 1200 1070 / 1070
Output Total 500 / 500 900 / 900
Balance 700 / 700 170 / 170
SaO2 99
Nasal Cannula flow liters per 10
minute
Physical Exam
General: Respiratory Distress (Mild at rest), Poor Appetite and Other (Unresponsive at baseline)
HEENT: Normocephalic and Anicteric
Cardiovascular: S1-S2 and Regular Rhythm
Respiratory: Rhonchi and Other ( decreased breath sounds in the left)
GI: Soft, Non Distended, Non Tender and Feeding Tube
Neurology: Other ( Noncommunicative. Poor cough effort.)
Skin: Warm, Dry and Cyanosis (nn)
Labs/Micro/Reports
Lab Data
08/14/24 05:08
08/14/24 05:08
Microbiology
08/11/24 11:19 Blood/Venous Blood Culture - Preliminary
No Growth in 48 hours- Final report to follow
08/11/24 11:19 Blood/Venous Blood Culture - Preliminary
No Growth in 48 hours- Final report to follow
08/11/24 02:49 Nose Nasal Screen MRSA (PCR) - Final
MRSA not detected - performed by PCR methodology.
08/11/24 00:45 Urine Legionella Urinary Antigen - Final
Negative for Legionella pneumophila Serogroup 1 antigen.
A negative result does not rule out the possiblity of
Legionella infection due to other serogroups or species of
Legionella. Clinical correlation is recommended.
[2024-08-14 12:01] LABS: Glucose - Point of Care 94 mg/dl (70-99)
[2024-08-14 18:18] LABS: Glucose - Point of Care 121 mg/dl (70-99)
[2024-08-14 23:24] LABS: Glucose - Point of Care 119 mg/dl (70-99)
[2024-08-15] VITALS (13 sets, daily range): BP systolic 92–138; BP diastolic 62–74; PULSE 2–85
[2024-08-15] MEDS: D5/0.9% SODIUM CHLORIDE 1000 IV (03:41)
--- NOTE | 2024-08-15 04:50 | PTCARENOTE ---
Pt now on 8L midflow spo2 98%. Pt at bed side through out night. Pt turned throughout night, emotional support given. Assessment care and vitals as charted.
[2024-08-15 05:02] LABS: % Basophils 0.8 % (0-2); % Eosinophils 4.9 % (0-6); % Immature Granulocytes 4.5 % (0-0.5); % Lymphocytes 13.8 % (20.5-51.1); % Monocytes 15.6 % (1.7-9.3); % Neutrophils 60.4 % (42.2-75.2); Absolute Eosinophils 0.3 10^3/uL (0-0.7); Absolute Immature Granulocytes 0.2 10^3/uL (0-0.05); Absolute Lymphocytes 0.7 10^3/uL (1.2-3.4); Absolute Monocytes 0.8 10^3/uL (0.1-0.6); Absolute Neutrophils 3.1 10^3/uL (1.4-6.5); Hematocrit 28.2 % (37.0-47.0); Hemoglobin 9.8 g/dL (12.0-16.0); Mean Corp Hgb Conc. 34.8 g/dL (33.0-37.0); Mean Corpuscular Volume 94.9 fL (81.0-99.0); Mean Platelet Volume 9.7 fL (7.4-10.4); Nucleated Red Blood Cells % 0 %; Platelet Count 190 10^3/uL (130-400); Red Blood Cell Count 2.97 10^6/uL (4.20-5.40); Red Cell Dist. Width 12.1 % (11.5-14.5); White Blood Cell Count 5.1 10^3/uL (4.8-10.8)
[2024-08-15] MEDS: ZOSYN 50 IV ×3 (05:03→17:21)
[2024-08-15] MEDS: SYNTHROID 75 MCG TUBE (05:03)
[2024-08-15 05:12] LABS: Glucose - Point of Care 104 mg/dl (70-99)
[2024-08-15 05:30] LABS: ALT (SGPT) 18 U/L (0-35); AST (SGOT) 49 U/L (14-36); Albumin 2.4 g/dl (3.5-5.0); Alkaline Phosphatase 165 U/L (38-126); Blood Urea Nitrogen 13 mg/dl (7-17); Calcium 8.2 mg/dl (8.4-10.2); Carbon Dioxide 22 mmol/L (22-30); Chloride 109 mmol/L (98-107); Estimated Creatinine Clearance 58 ml/min; Glucose 107 mg/dl (70-99); Potassium 3.5 mmol/L (3.5-5.1); Sodium 140 mmol/L (135-145); Total Bilirubin 0.3 mg/dl (0.2-1.3); Total Protein 4.6 g/dl (6.3-8.2); eGFR > 60.00
--- NOTE | 2024-08-15 07:09 | W.PN.HOSP.TC ---
Today's Communication/Plan
-
-Hospice care will assess the patient
Assessment / Plan
Assessment / Plan
Impression: The patient is a 69 year old female with PMH of Parkinson and hypothyroidism who presented to ER ON 08/10 for evaluation of increased drooling, difficulty with breathing, lethargy and fever. Patient has been on PEG tube feeding. Her
reported that she sometimes her was taking sips of water orally. Her also reported he was able to extract greenish-yellow mucus from the oral cavity. The Patient is unable to cough up any secretions. The patient has difficulty
with communication regarding verbalizing. This morning, the patient became more hypoxic and she had a portable CXR showing: Severe left lower lobe pneumonia, progressed. Pulmonology was consulted on 08/12. Saturation of the patient started to
increase with mid flow ~12 L supplemental O2. On 08/12 , RN reported that patient started to be desaturated to low 70s on 15 L through midflow. The patient was transferred to IMU on 08/12. It was decided to put patient on BiPAP and discussed with
pulmonology. Pulmonology did assess the patient due worsening respiratory failure. Patient is able to maintain to be saturated under BIPAP and getting desaturated with nasal cannula. It was switched a few times and patient is currently under
BIPAP. The family was discussed for hospice care.
Assessment/Plan:
# Acute hypoxic respiratory failure ( left lower lobe aspiration pneumonia)
-Chest CT: left lower lobe pneumonia- Repeated CXR 08/15 : Increased infiltrates on the left side
-Hx of chronic dysphagia/PEG tube placement and aspiration pneumonia as well
-WBC:5.1 (No leukocytosis, no fever)
-Procalcitonin: 4.3 on 08/10
-Patient is tachycardic
-blood culture: negative
-Legionella urinary antigen: Negative
-Cant tolerate CPT or will not be able to do IS
-due to aspiration- patient at risk of mucous plugging and worsening hypoxia, continue monitoring
-CXR this morning 08/15 showed: Increased opacification of the left hemithorax compared to the chest radiograph from 08/14/2024
-Pulmonology Recommendations: Will be sign off
Continue recommend treatment
No other recommendations
#Chronic dysphagia
-GI saw the patient on 08/12: Peg replaced
-On PEG tube:Manager Philosophy was consulted ob 08/13
-Hold on TF due possible risk of aspiration: Only her medications can be given through tube
-keep nothing by mouth for now
-head of the bed elevation
#Hypoglycemia
-This am blood glucose 107
- accu check q 6 to monitor bs
- Dextrose syringe PRN
-Continue d5/NSS at rate 50cc/hr while tube feeding on hold.
#Parkinson's disease
-Continue Sinemet
-Severe parkinsonism, nonverbal at baseline-noncommunicative.
#Urinary retention
- Harvey catheter was ordered on 08/13
-on glycopyrrolate and likely aggravates urinary retention.
#GERD
-maintain on lansoprazole through tube
# Hypothyroidism
-Continue levothyroxine through tube
#DVT PPX - lovenox
#Code Status - DNR
Anticipated Discharge: 24 - 48 hours
Subjective/Interval History
-
Date of Service: August
The patient started to be desaturated under midflow nasal cannula in the morning, there fore she was switched to BIPAP back again. Her repeat Chest X ray 08/15 showed increased opacification this morning on the left side. Family was discussed for
hospice today.
Objective Data
-
Labs:
Laboratory Results
08/15/24
04:36
WBC 5.1
Hgb 9.8 L
Hct 28.2 L
Plt Count 190
Sodium 140
Potassium 3.5
Chloride 109 H
Carbon Dioxide 22
BUN 13
Creatinine 0.5 L
Glucose 107 H
Calcium 8.2 L
Total Bilirubin 0.3
AST 49 H
ALT 18
Alkaline Phosphatase 165 H
Vital Signs:
Vital Signs
Temp Pulse Resp BP Pulse Ox
98.3 F 68 39 129/74 99
08/15/24 02:29 08/15/24 06:00 08/15/24 06:00 08/15/24 06:00 08/15/24 06:00
I&O
08/14/24 08/15/24 08/16/24
06:59 06:59 06:59
Intake Total 1070 / 1070 860 / 860
Output Total 900 / 900 850 / 850
Balance 170 / 170
Review of Systems
-
Unable to obtain full review of systems at this time due to: Patient Non-verbal
EENT: Reports No Symptoms Reported
Respiratory: Reports Other (See HPI )
Cardiac: Reports No Symptoms
Abdomen/GI: Reports No Symptoms and Other (PEG tube )
Genitourinary: Reports Other (See HPI )
Musculoskeletal: Reports Other (See HPI )
Neuro: Reports Other (See HPI )
Physical Exam
-
General: Appears in Distress and Appears Chronically Ill
HEENT: Normocephalic and Atraumatic
Respiratory: Rhonchi and Other (decreased breath sounds on the left)
Cardiac: Regular Rhythm, S1/S2 and Tachycardic
GI: Soft, Nontender and Other (PEG tube ( no discharge, no infection sign around it) )
Genito-urinary: Other (Harvey )
Musculoskeletal: Other (Rigidity )
Neuro: Other (Noncommunicative, Rigidity, Parkinson)
[2024-08-15] MEDS: MUCOMYST 10% 2 ML INH (07:24)
[2024-08-15] MEDS: DUONEB 3 ML INH ×3 (07:24→14:54)
--- NOTE | 2024-08-15 07:51 | PTCARENOTE ---
Rec'd pt this AM. on 8L MF NC. during chest PT, pt desat to 80%. did not recover with increase to 15L MF. RR 30s to 50. RT at bedside, placed back on bipap. MD team updated.
--- NOTE | 2024-08-15 08:01 | W.PN.UPDATE ---
Update Note
Progress Note Update
I saw and evaluated the patient. I reviewed the resident�s note and agree with findings and plan as documented in the resident�s note.
Acute hypoxic respiratory failure
Aspiration pneumonia
Left lung collapse
-Repeat chest x-ray showing minimal improvement in left upper lobe although on compression with images from yesterday no significant change
-Patient remains on IV Zosyn continue
-Patient was able to be weaned off of bipap and was in midflow but desaturated again with CPT to high 70- low 80s and required to be placed on BiPAP
-Chest XR repeat for today ordered
Hypoglycemia o- Improved
-Unfortunately due to increased aspiration risk and repeated desaturation events, patient tube feed needs to be held. Patient was not able to tolerat TF @ 10mls/hr day before.
-If pulmonary function settles, will attempt re-introducing TF
-Patient NS changed to D5 NS, stable Accu-Chek every 6h
Metabolic acidosis - Improved
-Reason unclear, continue monitoring
Advanced Parkinson
Functional quadriplegia
-patient at presentation was speaking yes or no
-currently remains minimally responsive with no meaningful motor/speech activity
08/12,4,5 - Overall prognosis remains poor and patient appropriate for hospice care although patient spouse hopeful that patient condition will recover.
Currently patient in stable state on BiPAP and continuing current care plan. If any rapid decline of respiratory function or distress, patient will require to be transition to comfort care
Daily GOC discussion and spouse remains hopeful that she will recover
Unfortunately no cough reflex and high risk for re-aspiration episode and have spontenous respiratory arrest
Tried to contact daughter Esthela - went through , will try to discuss again
Total Critical Care Time 40 minutes. I was immediately available to the patient and staff. I personally examined, reviewed labs, diagnostic images/reports, interpretations, treatment plans, discussed patient care with other providers and family
or caregivers (if patient is unable to make decisions), entered orders as appropriate and documented the medical record.
--- NOTE | 2024-08-15 09:02 | W.DCSUMMARY ---
Discharge Summary
Discharge Data
Date of Admission: 08/11/24
Date of Discharge: 08/16/24
-
Pending Results: No
Hospital Course
Discharging Physician : Marco Coughlin MD
Disposition : Hospice Care
Primary care physician : Lalitha Choudhary MD
Principal Discharge diagnosis : Acute hypoxic respiratory failure, Advanced Parkinson
Chronic Discharge diagnosis : Acute hypoxic respiratory failure ( left lower lobe aspiration pneumonia): Studies were done to understand the underlying reason of her respiratory failure. WBC resulted in normal limits, No fever spikes were observed,
blood culture showed no growth, Legionella urinary antigen resulted negative, Procalcitonin level was unremarkable for infection. Her chest X ray showed: left lower lobe pneumonia most likely is secondary to aspiration or mucoid impaction.
Patient did not showed improvement with her progress. She was switched many times to BIPAP and nasal cannula O2. The patient got desaturated under nasal cannula.
Hospital Course : The patient is a 69 year old female with PMH of Parkinson and hypothyroidism who presented to ER on 08/10 for evaluation of increased drooling, difficulty with breathing, lethargy and fever. Patient has been on PEG tube feeding.
Her reported that she sometimes her was taking sips of water orally. Her also reported he was able to extract greenish-yellow mucus from the oral cavity. The Patient is unable to cough up any secretions due her severe
Parkinson. Patient has difficulty with communication regarding verbalizing. Her Chest CT on admission showed: left lower lobe pneumonia likely is secondary to aspiration or mucoid impaction, the possibility that this bronchial obstruction is
secondary to tumor. Following the day of the admission, the patient had episodes of hypoxia under nasal cannula O2 and she had a portable CXR showing: Severe left lower lobe pneumonia, progressed. Pulmonology was consulted on 08/12. Saturation
of the patient started to increase with mid flow ~12 L supplemental O2. On 08/12 , RN reported that patient started to be desaturated to low 70s on 15 L through midflow. The patient was transferred to IMU on 08/12. It was decided to put patient on
BiPAP and discussed with pulmonology. Pulmonology did assess the patient due worsening respiratory failure. Patient is able to maintain to be saturated under BIPAP and getting desaturated with nasal cannula. It was switched a few times and
patient became hypoxic with nasal cannula. The family was discussed for hospice care. Her is POA of the patient. Her daughter and her agreed for hospice care admission.
Important imaging findings :
08/[address]: IMPRESSION:
1). There is no pulmonary embolism
2). There is abnormal fluid/soft tissue in the left mainstem bronchus associated with left perihilar and left lower lobe pneumonia and less prominent pneumonic infiltrate in the posterior aspect of the left upper lobe and lingula. While this most
likely is secondary to aspiration or mucoid impaction, the possibility that this bronchial obstruction is secondary to tumor is included within the differential diagnosis and bronchoscopy may be useful for further evaluation.
Chest Xray: 08/12 IMPRESSION:
Severe left lower lobe pneumonia, progressed.
Chest Xray: 08/13 IMPRESSION:
Interval worsening of confluent opacity involving most of the hemidiaphragm with associated left-sided volume loss. There is truncation of the left mainstem bronchus. Findings likely represent lobar atelectasis secondary to underlying mucous
plugging. Presence of concomitant pneumonia or pleural effusion cannot excluded.
Chest Xray: 08/14 IMPRESSION:
Slightly improved aeration of the left upper lobe compared to the previous exam.
Persistent opacification of the mid to lower left lung, which may be on the basis of atelectasis, pleural fluid, and/or pneumonia. No pneumothorax. The right lung is clear. The cardiac silhouette is partially obscured.
A PEG tube projects over the upper abdomen.
Chest Xray: 08/15 IMPRESSION:
Increased opacification of the left hemithorax compared to the chest radiograph from 08/14/2024. Findings are again favored to be on the basis of atelectasis in correlation with previous examinations. Pleural fluid and/pneumonia are not excluded.
The right lung is clear. The cardiac silhouette is obscured.
Procedure findings :
PEG tube Replacement 08/12/24
asked to see as peg tube fell out on arrival to IMU. Peg replaced with #20 portuguese tube with 15 ml balloon without difficulty. Tube bumper between 3-4cm.
Discharge Plan
-
Patient Disposition: Hospice - Inpatient [facility]
Discharge Orders:
Discharge Patient (As Directed); Ordered 08/16/24
Ordered By: Marco Coughlin
Discharge Date and Time
Discharge Date/Time: 08/16/24 12:05
Print Language: FRISIAN
[2024-08-15] MEDS: SINEMET 25-100 2 TABLET TUBE ×2 (09:22→17:21)
[2024-08-15] MEDS: ROBINUL 1 MG PO (09:23)
[2024-08-15] MEDS: PREVACID 30 MG TUBE (09:23)
[2024-08-15] MEDS: HEPARIN 5000 UNITS SC (09:23)
[2024-08-15] MEDS: ROBITUSSIN 100 MG PO ×3 (09:23→17:21)
--- NOTE | 2024-08-15 10:14 | PTCARENOTE ---
Pt on 15L MF, turned to right side, pt with 10 beat run v tach, after approx 10 min, pt O2 sat down to 64%. placed on NRB mask over 15L MF. unable to recover. RT at bedside placed pt back on bipap. O2 sat currently 85%. notified. Daughter, Esthela
on her way to hospital to discuss hospice care with pt's sig other.
[2024-08-15] MEDS: SODIUM CHLORIDE 3% FOR INHALATION 1 VIAL INH (11:13)
--- NOTE | 2024-08-15 11:21 | CM ---
CM following re: discharge planning.
Reviewed pt's chart.
Hospice consult noted. Pt referred to hospice for evaluation.
D/c plan: hospice with hospice if family agrees.
CM will follow with discharge plan updates as hospitalization progresses
--- NOTE | 2024-08-15 11:30 | W.PN.PUL3 ---
Today's Communication / Plan
-
Reviewed events ON with care team, dependant on BIPAP/new VT
I discussed poor prognosis again with at bedside
Family to discuss hospice today, which is appropriate
Comfort is a priority
Not much to offer from our perspective
We will sign off at this time, please call with questions
Assessment
-
Patient is a 69-year-old female with previous history of Parkinson's disease, PEG tube dependent, history of aspiration pneumonia presented to the ER with fever and congestion at home. Per family, the patient was noted to be drooling with
temperature of 100.0 Fahrenheit, greenish-yellow mucus extracted from mouth consistent with coloring of tube feeds. She is unable to cough effectively. He occasionally pushes on her chest to express tube feed content. Last episode of aspiration
pneumonia was in 2020. She was notably in distress on arrival to ER with respiratory rate of 36 and oxygen saturation of 85% on room air. She is placed on supplemental O2, COVID test and influenza were negative. She is admitted to IMU for further
management.
Acute hypoxic respiratory failure, 85% on room air
Aspiration pneumonia (LLL consolidation)
Mucous plugging on CT imaging/Lobar atelectasis left lower lobe
Low-grade fever at home
Bandemia, 41%
Lactic acidosis, 3.2
Conditions present prior to admission
History of aspiration pneumonia, last episode 2020
Severe Parkinson's disease, baseline nonverbal status post PEG
Hypothyroidism
History of urinary retention
GERD
Plan
Worsening pulmonary condition, increased oxygen requirements.
Transferred to IMU 08/12/2024.
Chest x-ray 08/12/2024: Showed worsening left lower lobe infiltrate with atelectasis. Mediastinal shift.
Unfortunately, patient with poor cough effort, poor respiratory effort.
Started on BiPAP for increased work of breathing hypoxemia, high risk intubation, high risk for gastric content aspiration. Discussed with and he is okay with the patient is comfortable.
High Risks situation.
DNR status noted.
Prior history of lung disease is not noted but she has had one episode of aspiration PNA
Suspect patient has aspiration again, given history with TF in mouth
Family states she has issues with tolerating her TFs, follows with GI for this
CXR/CT obtained indicating mucus plugging, intraluminal findings remarked as possible tumor if persistent
Worsening chest x-ray 08/12/2024. Left lower lobe atelectasis.
Repeat CXR this AM about the same
No leukocytosis/fever curve improving, continue antibiotic therapy
Mucomyst Nebulized twice a day, mucolytic
Okay to use glycopyrrolate for secretion control.
Nebulizers [id number] to aid with secretion clearance
May try nasopharyngeal suctioning as needed.
Percussion therapy as able, unclear how effective this will be as patient has poor cough effort.
Discussed with respiratory therapist, will transition to sports bed.
Should take breaks from BiPAP due to risk of gastric distention and aspiration
s/p PEG for chronic dysphagia
keep nothing by mouth for now
head of the bed elevation.
Severe parkinsonism, nonverbal at baseline-noncommunicative.
Lack of cognition precludes her from effective airway clearance
Family is aware her condition is terminal and she has advanced directives stating no aggressive measures
She is currently DNR
Should her condition deteriorate would consider comfort measures.
Discussed extensively with family at bedside by Dr. Quiroga on 08/12/2024 and 08/13/2024. Discussed with him critical situation, high risk situation.
High risk use of noninvasive mechanical ventilation. Poor prognosis
is unrealistic, but daughter is the POA
Ace 08/15- spoke to today about her poor prognosis. He seems more receptive to hospice.
Children to discuss hospice today

Diagnostic Data
Chest X-Ray: 08/10/24 Left lower lobe pneumonia.
CT Scan: CHEST 08/11/24- 1). There is no pulmonary embolism
2). There is abnormal fluid/soft tissue in the left mainstem bronchus associated with left perihilar and left lower lobe pneumonia and less prominent pneumonic infiltrate in the posterior aspect of the left upper lobe and lingula. While this most
likely is secondary to aspiration or mucoid impaction, the possibility that this bronchial obstruction is secondary to tumor is included within the differential diagnosis and bronchoscopy may be useful for further evaluation.
Echo: 09/21/14- Normal left ventricular size and systolic function. Left ventricular ejection fraction is 50-55%. Normal regional wall motion. Mild concentric left ventricular hypertrophy. Normal right ventricular size and function. Mitral valve
opens normally. Trace mitral regurgitation. No mitral stenosis. Aortic valve is grossly normal but poorly visualized.Trace aortic insufficiency. No aortic stenosis.
Tricuspid valve opens normally. No tricuspid regurgitation. Right heart pressures could not be determined. Compared to prior study 11/22/2004 from an outside facility there is no significant change noted.
PFT's:
Reports and relevant images were personally reviewed.
Total time spent on this encounter _55_ includes review of history, physical exam, medications, laboratory data, personal review of imaging, extensive review of outpatient records, discussion with care team and respiratory therapy.
Subjective Data
-
Date of Service:
Date of Service: August 15, 2024
Chief Complaint: Pulmonary Follow Up (hypoxemic respiratory failure)
Subjective:
Remains clinically worsened, dependant on BIPAP
Episodes of VT overnight
at bedside
Objective Data
Data Reviewed
Vital Signs / I&O / Oxygen:
Vital Signs
Temp Pulse Resp BP Pulse Ox
99.4 F 82 36 129/74 92
08/15/24 07:55 08/15/24 11:20 08/15/24 11:20 08/15/24 06:00 08/15/24 11:20
Intake and Output
08/14/24 08/15/24 08/16/24
06:59 06:59 06:59
Intake Total 1070 / 1070 860 / 860
Output Total 900 / 900 850 / 850
Balance 170 / 170 10
SaO2 92
Nasal Cannula flow liters per 8
minute
Physical Exam
General: Respiratory Distress (Mild at rest), Poor Appetite and Other (Unresponsive at baseline)
HEENT: Normocephalic and Anicteric
Cardiovascular: S1-S2 and Regular Rhythm
Respiratory: Rhonchi and Other ( decreased breath sounds in the left)
GI: Soft, Non Distended, Non Tender and Feeding Tube
Neurology: Other ( Noncommunicative. Poor cough effort.)
Skin: Warm, Dry and Cyanosis (nn)
Labs/Micro/Reports
Lab Data
08/15/24 04:36
08/15/24 04:36
Microbiology
08/11/24 11:19 Blood/Venous Blood Culture - Preliminary
No Growth in 4 days- Final report to follow
08/11/24 11:19 Blood/Venous Blood Culture - Preliminary
No Growth in 4 days- Final report to follow
--- NOTE | 2024-08-15 11:56 | HOSPNOTE ---
Referral received. Will f/u with family
--- NOTE | 2024-08-15 12:02 | PTCARENOTE ---
Family at bedside. hospice consult planned for today.
[2024-08-15 12:27] LABS: Glucose - Point of Care 115 mg/dl (70-99)
--- NOTE | 2024-08-15 12:39 | HOSPNOTE ---
Spoke with the patients daughter Esthela via phone. She agreed to a phone introduction to Hospice. She understands that her mother ,the patient , will be placed on comfort measure today. If the patient lives through the night she will be admitted [facility]ospice services tomorrow. DR Cerda is also in agreement with plan.
--- NOTE | 2024-08-15 15:49 | CHAP ---
Asked by nurse to visit, as Maribell had acknowledged she would like a encoding machine operator to come. After talking with daughter Esthela and attending nurse, we offered prayers commending Maribell to God, and asking peace for all. Emotional and spiritual support
provided.
--- NOTE | 2024-08-15 18:29 | PTCARENOTE ---
Pt transitioned to comfort measures. RN asked pt to squeeze hand if she had pain, she did squeeze hand and her RR remains 37. See MAR
[2024-08-15] MEDS: MORPHINE SULFATE 1 MG IV ×2 (18:32→20:24)
--- NOTE | 2024-08-15 19:55 | PTCARENOTE ---
Reassessment of Morphine. Pt responds to yes no questions by squeezing hand. Per Pt breathing feels better and no pain at this time. Family at bed side. Emotional support given.
[2024-08-15] MEDS: ATIVAN 1 MG IV (21:19)
[2024-08-15] MEDS: NSS (PRESERVATIVE FREE) 0.5 ML IV (21:20)
[2024-08-15] MEDS: DUONEB INH (22:16)
--- NOTE | 2024-08-15 23:26 | PTCARENOTE ---
Pt children left for night at bed side. presenting legal paperwork to RN to keep on file. Paper work appearing to be DNR and medical POA. Papers copied field cane scale clerk sent papers to be scanned in by admissions to be put in chart. Child
appearing sceptical of paper work and wanting it to be made clear that the Pt (their mother) can still say yes and no by squeezing hand to yes and no questions. Pt appearing comfortable at this time, able to squeeze hand no pain at this time.
--- NOTE | 2024-08-16 07:17 | W.PN.HOSP.TC ---
Today's Communication/Plan
-
-Hospice care admission
Assessment / Plan
Assessment / Plan
Impression: The patient is a 69 year old female with PMH of Parkinson and hypothyroidism who presented to ER ON 08/10 for evaluation of increased drooling, difficulty with breathing, lethargy and fever. Patient has been on PEG tube feeding. Her
reported that she sometimes her was taking sips of water orally. Her also reported he was able to extract greenish-yellow mucus from the oral cavity. The Patient is unable to cough up any secretions. The patient has difficulty
with communication regarding verbalizing. This morning, the patient became more hypoxic and she had a portable CXR showing: Severe left lower lobe pneumonia, progressed. Pulmonology was consulted on 08/12. Saturation of the patient started to
increase with mid flow ~12 L supplemental O2. On 08/12 , RN reported that patient started to be desaturated to low 70s on 15 L through midflow. The patient was transferred to IMU on 08/12. It was decided to put patient on BiPAP and discussed with
pulmonology. Pulmonology did assess the patient due worsening respiratory failure. Patient is able to maintain to be saturated under BIPAP and getting desaturated with nasal cannula. It was switched a few times and patient is currently under
BIPAP. The family was discussed for hospice care and family agreed on it.
Assessment/Plan:
# Acute hypoxic respiratory failure ( left lower lobe aspiration pneumonia)
-Chest CT: left lower lobe pneumonia- Repeated CXR 08/15 : Increased infiltrates on the left side
-Hx of chronic dysphagia/PEG tube placement and aspiration pneumonia as well
-WBC:5.1 on 08/15 (No leukocytosis, no fever)
-Procalcitonin: 4.3 on 08/10
-Patient is tachycardic
-blood culture: negative
-Legionella urinary antigen: Negative
-Cant tolerate CPT or will not be able to do IS
-due to aspiration- patient at risk of mucous plugging and worsening hypoxia, continue monitoring
-CXR this morning 08/15 showed: Increased opacification of the left hemithorax compared to the chest radiograph from 08/14/2024
-Pulmonology Recommendations: Will be sign off - No other recommendations
#Chronic dysphagia
-GI saw the patient on 08/12: Peg replaced
-On PEG tube:Ash Collector was consulted ob 08/13
-Hold on TF due possible risk of aspiration: Only her medications can be given through tube
-keep nothing by mouth for now
-head of the bed elevation
#Hypoglycemia
- accu check q 6 to monitor bs
- Dextrose syringe PRN
-Continue d5/NSS at rate 50cc/hr while tube feeding on hold.
#Parkinson's disease
-Continue Sinemet
-Severe parkinsonism, nonverbal at baseline-noncommunicative.
#Urinary retention
- Harvey catheter was ordered on 08/13
-on glycopyrrolate and likely aggravates urinary retention.
#GERD
-maintain on lansoprazole through tube
# Hypothyroidism
-Continue levothyroxine through tube
#DVT PPX - lovenox
#Code Status - DNR
Anticipated Discharge: Today
Subjective/Interval History
-
Date of Service: August 16, 2024
Objective Data
-
Vital Signs:
Vital Signs
Temp Pulse Resp BP Pulse Ox
97.8 F 77 22 92/62 89
08/15/24 20:06 08/15/24 22:43 08/15/24 22:43 08/15/24 22:43 08/15/24 20:10
I&O
08/15/24 08/16/24 08/17/24
06:59 06:59 06:59
Intake Total 860 / 860
Output Total 850 / 850 500 / 500
Balance -500 / -500
Review of Systems
-
Unable to obtain full review of systems at this time due to: Patient Non-verbal
History Source: Family
EENT: Reports No Symptoms Reported
Respiratory: Reports Other (See HPI )
Cardiac: Reports No Symptoms
Abdomen/GI: Reports Other (See HPI )
Genitourinary: Reports Other (See HPI )
Musculoskeletal: Reports Other (See HPI )
Neuro: Reports Other (See HPI )
Physical Exam
-
General: Respiratory Distress and Appears Chronically Ill
HEENT: Normocephalic and Atraumatic
Respiratory: Rhonchi and Other (decreased breath sounds on the left)
Cardiac: Regular Rhythm, S1/S2 and Tachycardic
GI: Soft, Nontender and Other (PEG tube ( no discharge, no infection sign around it))
Genito-urinary: Harvey
Musculoskeletal: Other (Rigidity)
Neuro: Other (Noncommunicative, Rigidity, Parkinson)
[2024-08-16] MEDS: DUONEB INH (08:50)
--- NOTE | 2024-08-16 09:08 | PTCARENOTE ---
RN assessed pt this AM. she continues to communicate by squeezing hand in response to yes and no questions. Pt responded she is having some pain and anxiety but that she does not want meds at this time. She affirmed her symptoms are manageable. RN
informerd pt that continuous assessment of her comfort will be ongoing. she squeezed in affirmation. educated about this at bedside.
--- NOTE | 2024-08-16 09:29 | W.PN.UPDATE ---
Update Note
Progress Note Update
69-year-old female with fever and shortness of breath
Seen earlier. Late documentation. Family was at bedside
I personally performed a history and physical exam of the patient and discussed management with the resident. I reviewed the resident's note and agree with the documented findings and plan of care HPI/CC except for changes in my documentation
CVS: S1-S2 normal
Chest: Rales bilaterally decreased breath sound at bases, tachypnea
Abdomen: Soft, NT / Bowel sounds present
Extremities: No edema
ORCHARD SPRAYER: Confused. Mostly nonverbal, squeezes hands with commands.
# Sepsis from aspiration pneumonia
# Acute hypoxic respiratory failure secondary to aspiration pneumonia
Mucous plugging on CT
History of aspiration pneumonia
Patient was able to be weaned off of BiPAP but desaturated again and placed back on BiPAP
Now on 10 L of oxygen
# Lactic acidosis
# Hypoglycemia-tube feeds and dextrose as needed
# Parkinson disease-with nonverbal state continue Sinemet, coagulate for secretions
# Hypothyroidism-continue Synthroid 75 mcg
# Chronic dysphagia with PEG tube
# History of urinary retention-Harvey catheter placed 08/13/2024
# GERD-continue PPI
# Insomnia-on Ambien at bedtime
# DVT prophylaxis-Lovenox
# DNR
Part of this note was created using voice recognition system. Occasional wrong word or��sound alike� substitutions may have inadvertently occurred due to the inherent limitations of voice recognition software. If noted kindly bring it to my
attention for correction.
Power of medical pathology teacher documents reviewed
Discussed with nursing
Discussed with hospice nurse at bedside
Discussed with patient's daughter and patient's at bedside
Both are in agreement for transfer to hospice. Inpatient hospice transfer was initiated and admission changed inpatient hospice. They are aware that she will be on medicines for comfort.
time spent over 50 min
--- NOTE | 2024-08-16 11:28 | HOSPNOTE ---
Spoke at length with family and spouse. All in agreement to begin hospice services. Spoke with attending and CM updated with plan. Admissions was called and patient will remain inpatient hospice.
[2024-08-16] MEDS: MORPHINE SULFATE 1 MG IV (11:32)
[2024-08-16] MEDS: ATIVAN 1 MG IV (11:34)
[2024-08-16 11:40] VITALS: BP 114/71
--- NOTE | 2024-08-16 16:54 | CM ---
Patient with Hx Parkinsons Dz with chronic dysphagia/PEG with sepsis, PNA, urinary retention. Comfort care.
Notified by [facility] patient will start on [facility] today.
Plan [facility].
== END 2024-08-16 12:05 | disposition hospice, home (50) | DRG 871 ==
LOC: IMU 01:31
PROVIDERS: Hospitalist; Nurse Practitioner Family; Physician Assistant; Student in an Organized Health Care Education/Training Program; ADMITTING PHYSICIAN Internal Medicine; ATTENDING PHYSICIAN Hospitalist; EMERGENCY PHYSICIAN Student in an Organized Health Care Education/Training Program; FAMILY PHYSICIAN Internal Medicine; OTHER PHYSICIAN Internal Medicine
DX: A41.9 Sepsis, unspecified organism (principal); J69.0 Pneumonitis due to inhalation of food and vomit; J96.01 Acute respiratory failure with hypoxia; R53.2 Functional quadriplegia; J98.11 Atelectasis; Z43.1 Encounter for attention to gastrostomy; Z11.52 Encounter for screening for COVID-19; A41.89 Other specified sepsis; G20.A1 Parkinson's disease without dyskinesia, without mention of fluctuations; E03.9 Hypothyroidism, unspecified; Z66 Do not resuscitate; Z51.5 Encounter for palliative care; L89.152 Pressure ulcer of sacral region, stage 2; D72.825 Bandemia
CPT/HCPCS: 36600; 49465; 71045; 71275; 80048; 80053; 81003; 82805; 82962; 83605; 84145; 85025; 85027; 85610; 87040; 87449; 87502; 87641; 87811; 94640; 94660; 94667; 94668; 96374; 99285; Q9967

== ENCOUNTER 2024-08-16 12:06 | Inpatient (IN) | payer OTHER, SELFPAY ==
[2024-08-16 10:00] VITALS: BP 114/82
[2024-08-16 12:23] VITALS: BMI 17.9
--- NOTE | 2024-08-16 13:11 | PTCARENOTE ---
Pt transferred from IMU to hospice care. Discussed hospice extensively with spouse, children and business representative. Goals of care discussed. pt's comfort is paramount. Pt communicated via nodding and squeezing hand of RN that she was uncomfortable and she
would like morphine and ativan. Spouse can be ambivalent about comfort meds. Extensive education provided to spouse and family that RN will assess pt's need for comfort medications and will treat pt accordingly. Curerntly remains on 2L O2 for
comfort.
[2024-08-16] MEDS: MORPHINE SULFATE 1 MG IV ×5 (13:51→23:07)
[2024-08-16] MEDS: ROBINUL 0.2 MG IV ×2 (13:53→23:27)
--- NOTE | 2024-08-16 15:36 | HOSPNOTE ---
Patient is now on hospice services. Spoke with spouse and family about hospice and the philosophy. All in agreement, the spouse can be a bit difficult at times with medication administration, however I told him patient needs to be kept comfortable.
Patient will be seen daily.
--- NOTE | 2024-08-16 17:03 | CM ---
Patient who was living at home with .
Per [facility], patient to begin [facility] today.
Plan [facility].
--- NOTE | 2024-08-16 17:19 | HPS.HSE ---
Family Physician
-
Family Physician: INTERVIEWE UNKNOWN - PT NOT
Chief Complaint
-
Acute hypoxic respiratory failure
History of Present Illness
The patient is a 69 year old female with PMH of Parkinson and hypothyroidism who presented to ER on 08/10 for evaluation of increased drooling, difficulty with breathing, lethargy and fever. Patient has been on PEG tube feeding. Her
reported that she sometimes her was taking sips of water orally. Her also reported he was able to extract greenish-yellow mucus from the oral cavity. The Patient is unable to cough up any secretions due her severe Parkinson. Patient
has difficulty with communication regarding verbalizing. Her Chest CT on admission showed: left lower lobe pneumonia likely is secondary to aspiration or mucoid impaction, the possibility that this bronchial obstruction is secondary to tumor.
Following the day of the admission, the patient had episodes of hypoxia under nasal cannula O2 and she had a portable CXR showing: Severe left lower lobe pneumonia, progressed. Pulmonology was consulted on 08/12. Saturation of the patient
started to increase with mid flow ~12 L supplemental O2. On 08/12 , RN reported that patient started to be desaturated to low 70s on 15 L through midflow. The patient was transferred to IMU on 08/12. It was decided to put patient on BiPAP and
discussed with pulmonology. Pulmonology did assess the patient due worsening respiratory failure. Patient is able to maintain to be saturated under BIPAP and getting desaturated with nasal cannula. It was switched a few times and patient became
hypoxic with nasal cannula. The family was discussed for hospice care. Her is POA of the patient and willing to discus with palliative care for next steps.
Medical History
Past Medical History
Past Medical History: Reports Hypothyroidism and Other (Severe Parkinson with rigidity )
Past Surgical History: Reports None
Social History
Unable to obtain full social history at this time due to: Patient Non-verbal
Tobacco: Non-smoker
Alcohol: None
Drug: None
Personal:
Living: With Family
Employment: Disabled
Family History
Family History: Not pertinent
Allergies / Home Medications
Allergies reflects when Allergies were last updated in [employer].
Home Medications with original date entered in [employer]
Allergy/Medication List:
Allergies
Allergy/AdvReac Type Severity Reaction Status Date / Time
codeine Allergy Rash Verified 08/10/24 22:36
Home Medications
levothyroxine 75 mcg tablet 75 mcg feeding tube DAILY Thyroid 12/01/18
zolpidem 10 mg tablet 10 mg feeding tube HS Sleep 12/01/18
lansoprazole 30 mg delayed release,disintegrating tablet 30 mg feeding tube DAILY ##30 12/08/18
glycopyrrolate 1 mg tablet 1 mg PO DAILY Gastrointestinal issue 11/01/21
acetaminophen 500 mg/15 mL oral liquid 1,000 mg feeding tube HS Pain 12/03/23
carbidopa 25 mg-levodopa 100 mg tablet 2 tab PO BID parkinson's 08/12/24
If medication reconciliation has not been performed, why?: Other (comfort care)
Review of Systems
-
Unable to obtain full review of systems at this time due to: Patient Non-verbal
History Source: Family
EENT: Reports No Symptoms
Respiratory: Reports See HPI and Other
Cardiac: Reports No Symptoms
Abdomen/GI: Reports No Symptoms and See HPI
: Reports See HPI and Harvey
Musculoskeletal: Reports See HPI
Neurological: Reports See HPI
Physical Exam
Vital Signs
Vital Signs
Temp Pulse Resp BP Pulse Ox
97.8 F 78 22 114/82 95
08/16/24 10:00 08/16/24 10:00 08/16/24 10:00 08/16/24 10:00 08/16/24 10:00
Physical Exam
General: Respiratory Distress and Appears Chronically Ill
HEENT: NormoCephalic and Anicteric
Respiratory: Rhonchi and Other (Decreased Breath Sounds)
Cardiac: S1/S2, Regular Rhythm and Tachycardia
GI: Soft and Non Tender
Genito-urinary: Harvey
Musculoskeletal: Other (Rigidity)
Skin: Warm
Neuro: Other (somnolent, not oriented, open her eyes slightly with verbal stimulation)
Impression/Plan
-
IMPRESSION:
Impression: The patient is a 69 year old female with PMH of Parkinson and hypothyroidism who presented to ER ON 08/10 for evaluation of increased drooling, difficulty with breathing, lethargy and fever. Patient has been on PEG tube feeding. Her
reported that she sometimes her was taking sips of water orally. Her also reported he was able to extract greenish-yellow mucus from the oral cavity. The Patient is unable to cough up any secretions. The patient has difficulty
with communication regarding verbalizing. Following the day of the admission, the patient had episodes of hypoxia under nasal cannula O2 and she had a portable CXR showing: Severe left lower lobe pneumonia, progressed. Pulmonology did assess
and followed up the patient due worsening respiratory failure. Patient was able to maintain to be saturated under BIPAP and getting desaturated with nasal cannula. It was switched a few times and patient became hypoxic with nasal cannula. The
patient`s condition did not improve and comfort care was discussed with the family and family accepted comfort care. She was switched to nasal cannula. The family was discussed for hospice care. Her is POA of the patient and the patient was
admitted for hospice care.
Assessment/Plan:
# Acute hypoxic respiratory failure
-Comfort care measures: Morphine sulfate 1 mg IV PRN, Ativan 1 mg IV PRN
-Chest CT: left lower lobe pneumonia- Repeated CXR 08/15 : Increased infiltrates on the left side
-No improvement
-Hx of chronic dysphagia/PEG tube placement and aspiration pneumonia as well
-WBC:5.1 on 08/15 (No leukocytosis, no fever spikes )
-Procalcitonin: 4.3 on 08/10
-Patient is tachycardic
-blood culture: negative
-Legionella urinary antigen: Negative
-Pulmonology: sign off
#Chronic dysphagia
-GI saw the patient on 08/12: Peg replaced
-Hold on TF due possible risk of aspiration: Only her medications can be given through tube for comfort if needed under comfort care measures
-keep nothing by mouth for now
-head of the bed elevation
#Urinary retention
- Harvey catheter
Other chronic Medical Disease:Patient was put under comfort care measures
#Hypoglycemia
#Parkinson's disease
#GERD
# Hypothyroidism
#Code Status - DNR
--- NOTE | 2024-08-16 18:21 | W.PN.UPDATE ---
Update Note
Progress Note Update
69-year-old female with fever and shortness of breath
Seen earlier. Late documentation. Family was at bedside
CVS: S1-S2 normal
Chest: Rales bilaterally decreased breath sound at bases, tachypnea
Abdomen: Soft, NT / Bowel sounds present
Extremities: No edema
RAIL BONDER: Confused. Mostly nonverbal, squeezes hands with commands.
# Sepsis from aspiration pneumonia
# Acute hypoxic respiratory failure secondary to aspiration pneumonia
Mucous plugging on CT
History of aspiration pneumonia
Patient was able to be weaned off of BiPAP but desaturated again and placed back on BiPAP
Now on 10 L of oxygen
# Lactic acidosis
# Hypoglycemia-tube feeds and dextrose as needed
# Parkinson disease-with nonverbal state continue Sinemet, coagulate for secretions
# Hypothyroidism-continue Synthroid 75 mcg
# Chronic dysphagia with PEG tube
# History of urinary retention-Harvey catheter placed 08/13/2024
# GERD-continue PPI
# Insomnia-on Ambien at bedtime
# DVT prophylaxis-Lovenox
# DNR
Power of attorney at law documents reviewed
Discussed with nursing
Discussed with hospice nurse at bedside
Discussed with patient's daughter and patient's at bedside
Both are in agreement for transfer to hospice. Inpatient hospice transfer was initiated and admission changed inpatient hospice. They are aware that she will be on medicines for comfort.
time spent over 50 min
[2024-08-16] MEDS: ATIVAN 1 MG IV (21:27)
[2024-08-16] MEDS: NSS (PRESERVATIVE FREE) 0.5 ML IV (21:28)
[2024-08-16 23:26] VITALS: BP 122/66
[2024-08-16] MEDS: NSS (PRESERVATIVE FREE) 0.25 ML IV (23:30)
[2024-08-16] MEDS: ATIVAN 0.5 MG IV (23:30)
--- NOTE | 2024-08-17 00:45 | PTCARENOTE ---
Pt continues on Hospice care. Medication administration as documented. Pt did not question or interfere with medication administration, however would not leave trust in to tell nursing if Pt looked or signaled being uncomfortable. Pt
still able to squeeze hand to yes and no questions. Assessment and care as documented.
[2024-08-17] MEDS: MORPHINE SULFATE 1 MG IV ×6 (01:53→21:58)
[2024-08-17] MEDS: ATIVAN 1 MG IV ×4 (03:24→19:55)
[2024-08-17] MEDS: NSS (PRESERVATIVE FREE) 0.25 ML IV (03:25)
--- NOTE | 2024-08-17 05:55 | PTCARENOTE ---
Pt receiving multiple doses of morphine through out the nigh as well as Ativan. This morning Pt appearing more comfortable and relaxed, pt facial expression appearing relaxed, respirations 10 with out moaning. Pt at bed side.
--- NOTE | 2024-08-17 07:08 | W.PN.HOSP.TC ---
Addendum entered and electronically signed by Marco Coughlin MD 08/17/24 15:15:
I personally performed a history and physical exam of the patient and discussed management with the resident. I reviewed the resident's note and agree with the documented findings and plan of care HPI/CC.
Pt appeared comfortable. Patient was seen earlier today was at bedside. Late documentation
Continue morphine and Ativan as needed
Original Note:
Today's Communication/Plan
-
-Comfort Care Measures
Assessment / Plan
Assessment / Plan
Impression: The patient is a 69 year old female with PMH of Parkinson and hypothyroidism who presented to ER on 08/10 for evaluation of increased drooling, difficulty with breathing, lethargy and fever. Patient has been on PEG tube feeding. The
Patient is unable to cough up any secretions due her severe Parkinson. Patient has difficulty with communication regarding verbalizing due Parkinson. Her Chest CT on admission showed: left lower lobe pneumonia likely is secondary to aspiration or
mucoid impaction, the possibility that this bronchial obstruction is secondary to tumor. Following the day of the admission, the patient had episodes of hypoxia under nasal cannula O2 and she had a portable CXR showing: Severe left lower lobe
pneumonia, progressed. Pulmonology saw the patient on 08/12 and adjusted the treatment and followed up. The patient was transferred to IMU on 08/12 due being desaturated under supplemental oxygen with nasal cannula. It was decided to put
patient on BiPAP. Patient is able to maintain to be saturated under BIPAP and getting desaturated with nasal cannula. It was switched a few times from BIPAP to nasal cannula, and the patient became hypoxic under nasal cannula. Her symptoms did
not improve during the hospitalization.The family was discussed for hospice care. Her is POA of the patient and decided for inpatient hospice care. He and patient`s daughter together decided for a hospice care admission.
#Hospice Care:
-Comfort care measures: Morphine sulfate 1 mg IV PRN, Ativan 1 mg IV PRN
# Acute hypoxic respiratory failure secondary to aspiration pneumonia
-Chest CT: Mucous plugging on left side
-Lisa of aspiration pneumonia
-Patient was able to be weaned off of BiPAP and currently on nasal cannula 2L/minute
# Lactic acidosis
# Hypoglycemia-tube feeds and dextrose as needed
# Parkinson disease-nonverbal state continue Sinemet, coagulate for secretions
# Hypothyroidism-continue Synthroid 75 mcg
# Chronic dysphagia with PEG tube
# History of urinary retention-Harvey catheter placed 08/13/2024
# GERD-continue PPI
# Insomnia-on Ambien at bedtime
# DVT prophylaxis-Lovenox
# DNR
-Power of patient care assistant documents reviewed showing her is her POA.
Anticipated Discharge: 24 - 48 hours
Subjective/Interval History
-
Date of Service: August 17, 2024
The patient was seen in her bed comfortable in a flexed position. She was wearing a nasal cannula with midflow O2 therapy.
Objective Data
-
Vital Signs:
Vital Signs
Temp Pulse Resp BP Pulse Ox
96.2 F L 75 10 122/66 89
08/16/24 23:26 08/16/24 23:26 08/17/24 04:47 08/16/24 23:26 08/16/24 23:26
I&O
08/16/24 08/17/24 08/18/24
06:59 06:59 06:59
Intake Total 0 / 0
Output Total 150 / 150
Balance -150 / -150
Review of Systems
-
Unable to obtain full review of systems at this time due to: Patient Non-verbal
History Source: Family
EENT: Reports No Symptoms Reported
Respiratory: Reports Other (See HPI)
Cardiac: Reports No Symptoms
Abdomen/GI: Reports No Symptoms
Genitourinary: Reports Other (See HPI and Harvey)
Musculoskeletal: Reports Other (See HPI)
Neuro: Reports Other (See HPI)
Physical Exam
-
General: No Apparent Distress, Comfortable and Appears Chronically Ill
HEENT: Normocephalic and Atraumatic
Respiratory: Rhonchi and Other (Decreased Breath Sounds on the left lung )
Cardiac: Regular Rhythm and S1/S2
GI: Soft, Nontender and Other (PEG tube ( No discahrge))
Genito-urinary: Harvey
Musculoskeletal: No Clubbing and Other (Rigidity)
Skin: Warm
Neuro: Other (somnolent, not oriented, only squeezing her hands) )
[2024-08-17 11:45] VITALS: BP 136/85
[2024-08-17] MEDS: ROBINUL 0.2 MG IV ×3 (11:49→21:27)
--- NOTE | 2024-08-17 12:40 | HOSPNOTE ---
Patient appeared uncomfortable when I went to assess. Spoke with floor RN and she will medicate prior to care. Family was visiting in room, all questions answered. Patient will be seen daily by hospice executive director.
--- NOTE | 2024-08-17 12:46 | PTCARENOTE ---
Assumed care of patient at beginning of this shift from previous RN with O2 2l n/c in use and at bedside; both sleeping. Patient able to squeeze hand to answer yes/no questions. On initial assessment patient squeezed hand when prompted, then
did not squeeze hand when asked if she was in pain/needed anything for pain or needed something for anxiety. When reassessed, patient did squeeze hand when asked if she wanted something for pain; medicated as per order. Patient also given ativan in
addition prior to morning care/bed bath and hermosillo care. On turning, increased secretions noted; medicated with robinul as ordered. Patient's sister in to visit. Patient now sleeping and appears comfortable. See worklist for full assessment and vital
signs; see MAR for med administration.
[2024-08-17] MEDS: NSS (PRESERVATIVE FREE) 0.5 ML IV (16:32)
[2024-08-17] MEDS: NSS (PRESERVATIVE FREE) 10 ML IV (19:56)
--- NOTE | 2024-08-17 21:40 | PTCARENOTE ---
Assumed care of patient from previous RN. Family at the bedside and is staying the night. Patient is no longer squeezing hands to answer yes or no questions. Pain is assessed through non verbal pain scale, morphine and Ativan given, see MAR.
Patient responded to medications well. Family expressed that patient is not able to wait as long for pain medication as she was prior, educated that morphine and Ativan are ordered Q1 as needed. Patient is now sleeping and appears comfortable.
[2024-08-18] MEDS: MORPHINE SULFATE 1 MG IV ×4 (00:55→08:06)
[2024-08-18] MEDS: ATIVAN 1 MG IV ×3 (01:04→09:29)
[2024-08-18] MEDS: NSS (PRESERVATIVE FREE) 10 ML IV ×2 (01:05→06:28)
--- NOTE | 2024-08-18 07:07 | W.PN.HOSP.TC ---
Addendum entered and electronically signed by Marco Coughlin MD 08/18/24 16:19:
Patient was seen earlier today. Total visit to the room today initially in the morning and later for pronouncement of . was at bedside in the morning and later. Daughter was also at bedside for the second visit.
Patient was in slight respiratory distress in the morning we had started her on morphine drip. Patient got morphine drip only for 15 minutes 1 mg dose and she passed.
Family was at bedside
Original Note:
Today's Communication/Plan
-
-Comfort care measures
Assessment / Plan
Assessment / Plan
Impression: The patient is a 69 year old female with PMH of Parkinson and hypothyroidism who presented to ER on 08/10 for evaluation of increased drooling, difficulty with breathing, lethargy and fever. Patient has been on PEG tube feeding. The
Patient is unable to cough up any secretions due her severe Parkinson. Patient has difficulty with communication regarding verbalizing due Parkinson. Her Chest CT on admission showed: left lower lobe pneumonia likely is secondary to aspiration or
mucoid impaction, the possibility that this bronchial obstruction is secondary to tumor. Following the day of the admission, the patient had episodes of hypoxia under nasal cannula O2 and she had a portable CXR showing: Severe left lower lobe
pneumonia, progressed. Pulmonology saw the patient on 08/12 and adjusted the treatment and followed up. The patient was transferred to IMU on 08/12 due being desaturated under supplemental oxygen with nasal cannula. It was decided to put
patient on BiPAP. Patient is able to maintain to be saturated under BIPAP and getting desaturated with nasal cannula. It was switched a few times from BIPAP to nasal cannula, and the patient became hypoxic under nasal cannula. Her symptoms did
not improve during the hospitalization.The family was discussed for hospice care. Her is POA of the patient and decided for inpatient hospice care. He and patient`s daughter together decided for a hospice care admission.
#Hospice Care:
-Comfort care measures: Morphine sulfate 1 mg IV PRN, Ativan 1 mg IV PRN
-Morphine sulfate 1mg was changed to IV dripp providing no pain
# Acute hypoxic respiratory failure secondary to aspiration pneumonia
-Chest CT: Mucous plugging on left side
-Lisa of aspiration pneumonia
-Patient was able to be weaned off of BiPAP and currently on nasal cannula 2L/minute
# Lactic acidosis
# Hypoglycemia-tube feeds and dextrose as needed
# Parkinson disease-nonverbal state continue Sinemet, coagulate for secretions
# Hypothyroidism-continue Synthroid 75 mcg
# Chronic dysphagia with PEG tube
# History of urinary retention-Harvey catheter placed 08/13/2024
# GERD-continue PPI
# Insomnia-on Ambien at bedtime
# DVT prophylaxis-Lovenox
# DNR
-Power of patent attorney documents reviewed showing her is her POA.
Anticipated Discharge: 24 - 48 hours
Subjective/Interval History
-
Date of Service: August 18, 2024
The patient was seen calm and comfortable in her bed. She did not open her eyes to verbal stimulus.
Objective Data
-
Vital Signs:
Vital Signs
Temp Pulse Resp BP Pulse Ox
98.9 F 72 33 136/85 74
08/17/24 23:58 08/17/24 11:45 08/17/24 11:45 08/17/24 11:45 08/17/24 11:45
I&O
08/17/24 08/18/24 08/19/24
06:59 06:59 06:59
Intake Total 0 / 0
Output Total 150 / 150 1200 / 1200
Balance -150 / -150 -1200 / -1200
Review of Systems
-
Unable to obtain full review of systems at this time due to: Patient Non-verbal
History Source: Family
EENT: Reports No Symptoms Reported
Respiratory: Reports Other (See HPI )
Cardiac: Reports No Symptoms
Abdomen/GI: Reports No Symptoms
Genitourinary: Reports No Symptoms
Musculoskeletal: Reports Other (See HPI )
Neuro: Reports Other (See HPI )
Physical Exam
-
General: No Apparent Distress and Comfortable
HEENT: Normocephalic and Atraumatic
Respiratory: Rhonchi and Other (Decreased Breath Sounds on the left lung)
Cardiac: Regular Rhythm and S1/S2
GI: Soft and Nontender
Musculoskeletal: No Clubbing and No Cyanosis
Skin: Warm
Neuro: Other (somnolent, not oriented, only squeezing her hands)
[2024-08-18] MEDS: NSS (PRESERVATIVE FREE) 0.5 ML IV (09:29)
[2024-08-18] MEDS: ROBINUL 0.2 MG IV (09:36)
--- NOTE | 2024-08-18 10:19 | PTCARENOTE ---
Assumed care of patient at beginning of this shift from previous RN; at bedside. Administered morphine, ativan and robinul as per prn order. Dr Coughlin on unit to assess and updated; order entered for morphine infusion. updated.
[2024-08-18] MEDS: MORPHINE 100 IV (10:33)
--- NOTE | 2024-08-18 11:51 | PTCARENOTE ---
Patient with agonal breathing; family at bedside. No heartbeat or breath sounds able to be auscultated at 11:45. [place] text sent to Dr Coughlin and Dr Flower. Family remains at bedside.
--- NOTE | 2024-08-18 12:12 | PTCARENOTE ---
Leanne Zavala, sql report writer, notified and will be up to speak with family.
--- NOTE | 2024-08-18 13:48 | W.PN.DEATH ---
Addendum entered and electronically signed by Marco Coughlin MD 08/18/24 16:25:
Cause of is Aspiration Pneumonia
Time of : 11:45
Date of : 08/18/24
Family Notified: Yes
Original Note:
Documented by User: Jocelin Flower MD, Resident 08/18/24 13:50
Pronouncement of
-
Called to see patient to pronounce.
No spontaneous heart tones or respirations noted.
Patient not responsive to verbal stimuli.
Patient is pronounced .
Time of : 11:45
Date of : 08/18/24
Cause of : Acute Respiratory Failure
Family Notified: Yes

Documented by User: Marco Coughlin MD 08/18/24 16:15
Pronouncement of
-
Cause of : Acute Respiratory Failure
--- NOTE | 2024-08-18 13:56 | W.DCSUMMARY ---
Documented by User: Jocelin Flower MD, Resident 08/18/24 15:11
Discharge Summary
Discharge Data
Date of Admission: 08/16/24
Date of Discharge: 08/18/24
-
Pending Results: No
Additional Pending Results:
Discharging Physician : Marco Coughlin MD
Disposition : The patient was on 08/18 at 11.45 am
Primary care physician : Lalitha Choudhary MD
Principal Discharge diagnosis : Advanced Parkinson, Respiratory failure
Chronic Discharge diagnosis : Respiratory failure ( left lower lobe aspiration pneumonia), hypothyroidism, rigidity due parkinsonism
Hospital Course :The patient was a 69 year old female with PMH of Parkinson and hypothyroidism who presented to ER on 08/10 for evaluation of increased drooling, difficulty with breathing, lethargy and fever. Patient was on PEG tube feeding. . The
Patient was unable to cough up any secretions due her severe Parkinson. Patient had difficulty with communication regarding verbalizing. Her Chest CT on admission showed: left lower lobe pneumonia likely is secondary to aspiration or mucoid
impaction, the possibility that this bronchial obstruction is secondary to tumor. Following the day of the admission, the patient had episodes of hypoxia under nasal cannula O2 . The patient started to be desaturated to low 70s on 15 L through
midflow and was transferred to IMU. It was decided to put patient on BiPAP and discussed with pulmonology. Pulmonology did assess the patient due worsening respiratory failure. Patient was able to maintain to be saturated under BIPAP and
getting desaturated with nasal cannula. It was switched a few times and patient became hypoxic with nasal cannula. Pulmonology saw the patient and followed up, and did sign off after the patient did not get any progress with the treatment. The
family was discussed for hospice care. Her is POA of the patient. Her daughter and her agreed for hospice care admission. The patient`s code status is DNR. The patient was on 08/18 at ~11.45 am.
Important imaging findings :
No imaging during hospice care admission
Procedure findings :
No procedure during hospice care admission
Pronouncement of
Called to see patient to pronounce.
No spontaneous heart tones or respirations noted.
Patient not responsive to verbal stimuli.
Patient is pronounced .
Time of : 11:45
Date of : 08/18/24
Cause of : Acute Respiratory Failure
Family Notified: Yes
Discharge Plan
-
Patient Disposition:
Date/Time
Date/Time: 08/18/24 11:45
Discharge Date and Time
Discharge Date/Time: 08/18/24 15:03
Print Language: AFGHAN

Documented by User: Marco Coughlin MD 08/18/24 16:28
Discharge Summary
Discharge Data
Date of Admission: 08/16/24
Date of Discharge: 08/18/24
Discharge Plan
-
Patient Disposition:
Date/Time
Date/Time: 08/18/24 11:45
Discharge Date and Time
Discharge Date/Time: 08/18/24 15:03
Print Language: AFGHAN
--- NOTE | 2024-08-18 14:11 | PTCARENOTE ---
[facility] notified ([facility]) who stated that patient is not suitable for donation.
--- NOTE | 2024-08-18 14:52 | PTCARENOTE ---
Nursing students completed post-mortem care with nursing educator. They removed patient's ring from her finger; they placed it in a denture cup with patient label affixed and placed in patient belonging bag, labeled, and sent to [facility] [place] with
patient. was notified.
--- NOTE | 2024-08-18 16:52 | CM ---
Notified patient - hospice nurse to meet with family.
== END 2024-08-18 15:03 | disposition expired | DRG 177 ==
LOC: IMU 12:06
PROVIDERS: Student in an Organized Health Care Education/Training Program; ADMITTING PHYSICIAN Hospitalist
DX: J69.0 Pneumonitis due to inhalation of food and vomit (principal); J96.01 Acute respiratory failure with hypoxia; E03.9 Hypothyroidism, unspecified; G20.A1 Parkinson's disease without dyskinesia, without mention of fluctuations; Z66 Do not resuscitate; Z93.1 Gastrostomy status